=== PATIENT | female | born 1980 | race Caucasian/White ===

== ENCOUNTER 2024-01-27 10:55 | Outpatient (AMB) | payer BC, SELFPAY ==
--- NOTE | 2024-01-27 11:09 | MHC.PC.OV ---
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 Transferring care from Donna Bass ([facility]) . Medical records have not been requested and have not received. Auto Body Repair Estimator Required: No Aircraft Armament Mechanic: Not Required per policy Accompanied by: Self / Same As Patient Allergies No Known Allergies Allergy (Verified 01/27/24 11:39) Medication List - Last Reconciled 01/27/24 by LIZA Jung No Known Home Meds Tobacco use date assessed: 01/27/24 Dental Screening Dental Screen Date: 01/27/24 Did you have a dental visit in the last 12 months?: Yes Did you have a dental problem in the last 6 months where you did not have access to dental care?: No Was dental information given to patient?: Patient has dentist HPI HPI Comments History of Present Illness Details 41 y/o F with seasonal allergies, elevated blood pressure without the diagnosis of hypertension, episodic anxiety Health Maintenance: PAP Tdap Specialists: [facility], limited medical records, Went to ED 05/2023, thinks was anxiety as workup was negative, other than her BP being high. This was 05/29/23, patient summary reviewed today during visit along w/ 30 day holter monitor results that was completed 07/28/23, showed overall normal with rare PVC and PAC. Since she has had HTN at the dentist. In regards to the anxiety, had life circumstances Winter that have improved, however cont to have sx. Has tension headaches, intermittent. Denies swelling in lower ext, chest pain, visual changes. Did have HTN in period without need for treatment. Itching ear, better w/ allergy medication. Exam: Awake alert no acute distress PERRLA Thyroid nonpalpable Mildly tachycardic, regular rhythm Lung sounds clear to auscultation bilat No edema bilateral lower extremities Nonfocal neuro exam Mildly anxious, cooperative, pleasant, appropriate Plan Check labs today & return to office in about 2 weeks to follow up on elevated blood pressure without a diagnosis of hypertension. Discuss referral to counseling however she does not wish to do this at this time. If labs are nonrevealing for cause could start her on a medication that would both help her BP as well as her anxiety. This note is constructed using voice recognition software. While every effort has been made to ensure accuracy in strategic communications manager, still errors may have been included Sometimes, these errors may affect the content or meaning of the given sentence . Total time spent caring for the patient today was 30 minutes. This includes time spent before the visit reviewing the chart, time spent during the visit, and time spent after the visit on documentation [facility] Surgical History (Updated 01/27/24 @ 11:20 by MONIKA Cotton) History of 2 sections Family History (Updated 01/27/24 @ 11:26 by MONIKA Cotton) Mother High blood pressure Maternal Grandmother Diabetes Paternal Grandmother Cancer Social History (Updated 01/27/24 @ 11:21 by MONIKA Cotton) Housing: House Alcohol intake: current Alcohol intake frequency: a few times a month Alcohol type: wine Patient Tobacco Use Status: Never used Tobacco e-Cigarette/Vaping Use: Never Used Second Hand Smoke Exposure: No service: No 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 1. Little interest or pleasure in doing things: not at all 2. Feeling down, depressed, or hopeless: not at all 3. Trouble falling or staying asleep, or sleeping too much: not at all 4. Feeling tired or having little energy: not at all 5. Poor appetite or overeating: not at all 6. Feeling bad about yourself - or that you are a failure or have let yourself or your family down: not at all 7. Trouble concentrating on things, such as reading the newspaper or watching television: not at all 8. Moving or speaking so slowly that other people could have noticed. Or the opposite - being so fidgety or restless that you have been moving around a lot more than usual: not at all 9. Thoughts that you would be better off or of hurting yourself in some way: not at all Total score: 0 Depression Screening Interpretation: Negative Depression Screening Done: Yes 26338 - PHQ-9 Billing: Yes Source: Developed by Drs. Felix Henao, Jacqueline Ludwig, Brendon Mcbride and colleagues, with an educational chela from [employer]. Thrive Questionnaire Date Thrive assessed: 01/27/24 I am a: Patient What is your living situation today?: I have a steady place to live Within the past 12 months, did the food you bought not last and you didn't have the money to get more?: Never true Within the past 12 months, did you worry whether your food would run out before you got money to buy more?: Never true Do you have trouble paying for medicines?: No Do you have trouble getting transportation to medical appointments?: No Do you have trouble paying your heating and electricity bill?: No Do you have trouble taking care of your child, family member or friend?: No Do you have trouble with day-to-day activities such as bathing, preparing meals, shopping, managing finances, etc.?: No Are you currently unemployed and looking for a job?: No Are you interested in more education?: No Currently or been in a relationship where the following occur: No concerns reported THRIVE Score: 0 AUDIT C Alcohol Use Questionnaire (AUDIT-C) 1. How often do you have a drink containing alcohol?: 2-4 times a month 2. How many drinks containing alcohol do you have on a typical day when you are drinking?: 1 or 2 3. How often do you have six or more drinks on one occasion?: Never Total Score: 2 Score Reviewed/Action Taken: Yes PATITO-7 AMB Questionnaire PATITO-7 Date PATITO - 7 assessed: 01/27/24 Feeling nervous, anxious, or on edge: 0 = Not at all Not being able to stop or control worryin = Not at all Worrying too much about different things: 0 = Not at all Trouble relaxin = Not at all Being so restless that it is hard to sit still: 0 = Not at all Becoming easily annoyed or irritable: 0 = Not at all Feeling afraid as if something awful might happen: 0 = Not at all Total PATITO-7 score (0-4 normal; 5-9 mild; 10-14 moderate; 15-21 severe): 0 Source: Developed by Drs. Felix Henao, Jacqueline Ludwig, Brendon Mcbride and colleagues, with an educational chela from [employer]. PATITO-7 Assessment Billing PATITO-7 Assessment Tool: PATITO-7 Assessment 37363 Physical exam (Primary Care) Vital Signs: Last Vital Signs Pulse 95 01/27/24 11:13 BP 150/88 H 01/27/24 11:13 Pulse Ox 97 01/27/24 11:13 Oxygen Delivery Method Room Air 01/27/24 11:13 BMI result Body Mass Index 30.0 BMI Assessment/Plan discussion: High BMI High, discussed plan: lifestyle Tobacco/Smoking Status: Tobacco use Status Tobacco use date assessed 01/27/24 01/27/24 11:23 Patient Tobacco Use Status Never used Tobacco 01/27/24 11:23 e-Cigarette/Vaping Use Never Used 01/27/24 11:23 PHQ-9: PHQ-9 Score PHQ-9: Total score 0 01/27/24 11:23 Depression Screening Interpretation: Negative Thrive Assessment: Date of Thrive Assessment Date Thrive assessed 01/27/24 01/27/24 11:23 Currently or been in a relationship where the following occur: No concerns reported Assessment and Plan Assessment & Plan (1) Elevated blood pressure reading in office without diagnosis of hypertension: Code(s): R03.0 - Elevated blood-pressure reading, without diagnosis of hypertension (2) Anxiety: Code(s): F41.9 - Anxiety disorder, unspecified (3) Laboratory exam ordered as part of routine general medical examination: Code(s): Z00.00 - Encounter for general adult medical examination without abnormal findings Orders: Orders Microalbumin, Random (w Creat) Today Z00.00 - Encounter for general adult medical examination without abnormal findings Vitamin B12 and Folate Today Z00.00 - Encounter for general adult medical examination without abnormal findings TSH reflex Free T4 Today Z00.00 - Encounter for general adult medical examination without abnormal findings Comprehensive Met. Panel Today Z00.00 - Encounter for general adult medical examination without abnormal findings Hemoglobin A1c Today Z00.00 - Encounter for general adult medical examination without abnormal findings Complete Blood Count no Diff Today Z00.00 - Encounter for general adult medical examination without abnormal findings IRON PROFILE Today Z00.00 - Encounter for general adult medical examination without abnormal findings Patient Instructions: Walk-In Care (Urgent Care): We Make it Easy Walk-in for urgent medical issues such as: ? Seasonal Allergies ? Insect Bites ? Cough ? Diarrhea ? Acute Asthma Attacks ? Back, Knee or Joint Pain ? Ear Infection ? Fever without a Rash ? Headaches ? Nausea ? [place] Eye, Rash or Skin Irritation ? Sore Throat ? Sports Physicals ? Vomiting Most insurances are accepted. Patients do not need to be part of the [facility] to seek care at the walk-in clinic. Locations [address] , [place] [address] ? [phone] [facility] in [place] provides services to ages 18 and over. Open Thursday-Thursday: 8 a.m. to 5 p.m. and Thursday: 9 a.m. to 3 p.m.* *Hours may vary due to staffing availability. To confirm Walk-In Care hours in [place], please call [phone]. [address] [place] [id number] ? [phone] [facility] in [place] provides services to ages 12 and over. Open Thursday-Thursday: 8 a.m. to 5 p.m. Hours may vary due to staffing availability. To confirm Walk-In Care hours in [place], please call [phone]. LABORATORY SERVICES: [facility] Lab ? Primary Location [address] [place] [address] Thursday through Thursday 6:00 AM ? 5:00 PM Thursday 7:00 AM ? 11:00 AM* [phone] The [facility] Lab is centrally located near the front entrance of the [facility] for easy outpatient access. Convenient parking is provided for outpatients. *Hours may vary due to staffing availability. To confirm Laboratory hours for any location, please call [phone]. Offsite Location For your convenience, we offer offsite laboratory draw stations at the following locations: [address] [place] [address] ? [address], [address] Thursday through Thursday 7:30 AM ? 1:00 PM* [phone] *Hours may vary due to staffing availability. To confirm Laboratory hours for any location, please call [phone]. [place] [address]eses, [place] Thursday through Thursday 6:00 AM ? 3:30 PM* Thursday 6:30 AM ? 3 PM* [phone] *Hours may vary due to staffing availability. To confirm Laboratory hours for any location, please call [phone]. [address] [facility] Thursday through Thursday 7:30 AM ? 4:00 PM* [phone] *Hours may vary due to staffing availability. To confirm Laboratory hours for any location, please call [phone]. [address] [facility] Thursday through 9:00 AM ? 4:00 PM* *Hours may vary due to staffing availability. To confirm Laboratory hours for any location, please call [phone]. Appointments are not necessary. Walk-ins are welcome. Like all the departments throughout the [facility], our Lab undergoes frequent reviews to ensure the quality and accuracy of test results, and our staff takes special pride in its status as a nationally accredited facility. Patient Portal: ONE PATIENT. ONE RECORD. BETTER CARE. [facility] has a fully integrated, cutting-edge mobile electronic health information system that has revolutionized the way we care for our patients and manage our organization. This system improves communication and coordination enabling us to provide safe, higher-quality care, and an overall positive experience for staff and patients. Our first priority, as always, is to deliver the highest quality care possible. The system is running in the background supporting that priority. This portal is for all [facility] services and practices. If you are experiencing any technical difficulties with enrolling or logging into the Patient Portal please complete the [facility] Patient Portal Technical Support Form. [facility] now offers a new secure on-line interactive tool for patients to review their health information ? ?Patient Portal. This interactive web portal will enable patients and their families to take an active role in their care by providing easy, secure access to their health information via the internet. The Patient Portal provides patients with instant access to their health information, including laboratory results, medications, allergies, demographic information, visit history, and more. In addition to managing their own care, parents and health care proxies with authorized consent will appreciate the ability to access the records of those individuals for whom they provide care. Please note: if you wish to gain access (Proxy) to another patient?s portal, you will be required to come to the Medical Records Department in person at [facility]. Both the patient giving proxy access and the proxy will need to provide photo identification and complete the appropriate authorization. The Patient Portal also allows track their appointments online. The [facility] Patient Portal also saves patients time by allowing them to submit updates to their demographic and contact information prior to their visits. Portal email notifications will also alert patients to any new activity on their portal, such as test results and new appointments. In order to initially enroll in the [facility] Patient Portal, you will need to enter some required information including the following: your [facility] Medical Record number your personal home email address name date of Please note: In order to enroll in the [facility] Patient Portal, we need to have your email address on file in your electronic medical record. ?The email address needs to be specific for one person (yourself) in order for your Portal enrollment to be successful. ?You can update your email address in person with our Registration staff when you are registering for a hospital visit. ?Otherwise, you will need to come to the Health Information Management (Medical Records) Department at [facility]. ?We are open from Thursday ? Thursday from 7:30 a.m. ? 4:30 p.m. ?You will be required to present a photo id. Once you have successfully enrolled in the Patient Portal, you will receive a one-time user id and password for the Portal, sent to your email address. ?This will allow you to log into the Patient Portal within 99 hrs and reset your own logon id and password, and define personal security questions. ?Once your permanent login and password have been set, you can log into the [facility] Patient Portal at any time via the blue button above or from the Portal Logon button on any page of the [facility] website. [facility] encourage all of our patients to enroll in Patient Portal as it presents a valuable opportunity for patients and their families to actively participate in their care and stay healthy Welcome to [facility]. ?We look forward to working with you. Coding Level of Care Code New Pt Level 3 (37555) Diagnoses Elevated blood pressure reading in office without diagnosis of hypertension R03.0 Anxiety F41.9 Laboratory exam ordered as part of routine general medical examination Z00.00 Additional Codes PATITO-7 Assessment Billing - PATITO-7 Assessment Tool: PATITO-7 Assessment 14572 ([id number])
[2024-01-27 11:13] VITALS: BP 150/88; PULSE 95; O2SAT 97
[2024-01-27 11:48] VITALS: BP 130/88
== END 2024-01-27 12:08 | disposition home or self-care (01) ==
PROVIDERS: Visit Provider Nurse Practitioner Family
DX: R03.0 Elevated blood-pressure reading, without diagnosis of hypertension (principal); F41.9 Anxiety disorder, unspecified
CPT/HCPCS: 99203

== ENCOUNTER 2024-01-27 11:57 | Outpatient (REF) | payer BC, SELFPAY ==
[2024-01-27 14:51] LABS: Hematocrit 41.6 % (37.0-47.0); Hemoglobin 14.2 g/dl (12.0-16.0); Mean Corpuscular HGB Conc 34.1 g/dl (31.0-35.0); Mean Corpuscular Hemoglobin 30.3 pg (27.0-33.0); Mean Corpuscular Volume 88.7 fL (80.0-98.0); Mean Platelet Volume 9.9 fL (9.4-12.3); Platelet Count 320 X10*3/uL (160-400); Red Blood Count 4.69 X10*6/uL (4.20-5.50); Red Cell Distribution Width 13.7 % (11.0-16.0)
[2024-01-27 14:58] LABS: Estimated Average Glucose 105 mg/dL; Hemoglobin A1c % 5.3 % (<6.0)
[2024-01-27 15:09] LABS: Alanine Aminotransferase 117 U/L (0-31); Albumin Level 4.2 g/dL (3.5-5.0); Alkaline Phosphatase 61 U/L (39-117); Anion Gap 11 (12-20); Aspartate Amino Transferase 96 U/L (5-31); Bilirubin Total 0.4 mg/dL (0.0-1.0); Blood Urea Nitrogen 9 mg/dL (9-16); Calcium 9.9 mg/dL (8.4-10.2); Carbon Dioxide 25 mmol/L (22-29); Chloride 106 mmol/L (96-108); Estimated Glomerular Filt Rate > 60; Glucose Random 85 mg/dL (60-115); Iron 58 mcg/dL (30-160); Percent Iron Saturation 17 % (15-50); Sodium 138 mmol/L (135-145); Total Iron Binding Capacity 338 mcg/dL (228-428); Total Protein 7.5 g/dL (6.5-8.0); Unsaturated Iron Binding 280 ug/dL
[2024-01-27 15:29] LABS: TSH reflex Free T4 1.98 uIU/mL (0.32-4.0)
[2024-01-27 15:34] LABS: Folate 11.4 ng/mL (> or = 4.0); Vitamin B12 393 pg/mL (200-900)
[2024-01-27 15:58] LABS: Creatinine Urine 20.49 mg/dL; Microalbumin Urine < 5.0 mg/L
== END 2024-01-27 11:58 | disposition home or self-care (01) ==
LOC: HO.WFDLDS 11:57
PROVIDERS: Visit Provider Nurse Practitioner Family
DX: Z00.00 Encounter for general adult medical examination without abnormal findings (principal); Z13.1 Encounter for screening for diabetes mellitus
CPT/HCPCS: 36415; 80053; 82043; 82570; 82607; 82746; 83036; 83540; 84443; 85027

== ENCOUNTER 2024-02-19 11:50 | Outpatient (AMB) | payer BC, SELFPAY ==
--- NOTE | 2024-02-19 11:55 | MHC.PC.OV ---
Vital Signs 02/19/24 11:57 02/19/24 12:15 Height 5 ft 3 in Weight 170 lb 4 oz BMI 30.2 BP 150/82 H 132/84 Blood Pressure Location Lt brachial Rt brachial Position Sitting Respiration 16 Pulse 107 H 88 Pulse Source Pulse Oximeter Auscultation Pulse Oximetry (%) 98 Oxygen Delivery Method Room Air Intake Visit Reasons: 2 weeks 30 min fu HTN labs and anxiety Intake Note: follow up on labs, anxiety and hypertension Allergies No Known Allergies Allergy (Verified 02/19/24 11:57) Medication List - [facility] Known Home Meds Tobacco use date assessed: 01/27/24 Dental Screening Dental Screen Date: 01/27/24 HPI HPI Comments History of Present Illness Details 41 y/o F with seasonal allergies, elevated blood pressure without the diagnosis of hypertension, episodic anxiety, fatty liver Here today for a 2 week course interim follow up. The following was reviewed with her: 01/27/24 labs WNL except elevated LFTs Since last visit the sx of palps has happened twice. Continues to have bouts of anxiety in which she feels these palpitations. Reports that even the smallest day-to-day activities can bring on the anxiety symptoms. Sleeping good overall. Does not need counselor, feels like stressors are more regular day to day. In regard to the elevated blood pressure and elevated pulse, she denies any chest pain, shortness of breath, swelling in her legs, change of vision headaches or syncope. She does wonder if any other testing needs to be done to see if her heart is okay. Exam: Awake alert no acute distress PERRLA Thyroid nonpalpable Mildly tachycardic, regular rhythm Lung sounds clear to auscultation bilat No edema bilateral lower extremities Nonfocal neuro exam Mildly anxious, cooperative, pleasant, appropriate Plan Start propranolol ER 60 mg p.o. at bedtime, take 1 hour before bed. This will be used to help lower your blood pressure and her pulse as well as to help control anxiety. Start buspirone 10 mg 1 tab p.o. daily in the morning to help control the anxiety. Educated on side effects of medications and reasons to stop. I would like to see you back in 6 weeks to follow up, sooner as needed. In regards to additional imaging for your heart, could pursue an echocardiogram in the future, however exam is reassuring today and I do not feel this needs to be done at the current time. This note is constructed using voice recognition software. While every effort has been made to ensure accuracy in sales estimator, still errors may have been included Sometimes, these errors may affect the content or meaning of the given sentence . 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 1. Little interest or pleasure in doing things: not at all 2. Feeling down, depressed, or hopeless: not at all 3. Trouble falling or staying asleep, or sleeping too much: not at all 4. Feeling tired or having little energy: not at all 5. Poor appetite or overeating: not at all 6. Feeling bad about yourself - or that you are a failure or have let yourself or your family down: not at all 7. Trouble concentrating on things, such as reading the newspaper or watching television: not at all 8. Moving or speaking so slowly that other people could have noticed. Or the opposite - being so fidgety or restless that you have been moving around a lot more than usual: not at all 9. Thoughts that you would be better off or of hurting yourself in some way: not at all Total score: 0 40549 - PHQ-9 Billing: Yes Source: Developed by Drs. Felix Henao, Jacqueline Ludwig, Brendon Mcbride and colleagues, with an educational chela from [employer]. Thrive Questionnaire Date Thrive assessed: 01/27/24 AUDIT C Alcohol Use Questionnaire (AUDIT-C) 2. How many drinks containing alcohol do you have on a typical day when you are drinking?: 1 or 2 3. How often do you have six or more drinks on one occasion?: Less than monthly Total Score: 1 PATITO-7 AMB Questionnaire PATITO-7 Date PATITO - 7 assessed: 02/19/24 Feeling nervous, anxious, or on edge: 1 = Several days Not being able to stop or control worryin = Not at all Worrying too much about different things: 0 = Not at all Trouble relaxin = Not at all Being so restless that it is hard to sit still: 0 = Not at all Becoming easily annoyed or irritable: 1 = Several days Feeling afraid as if something awful might happen: 0 = Not at all Total PATITO-7 score (0-4 normal; 5-9 mild; 10-14 moderate; 15-21 severe): 2 Source: Developed by Drs. Felix Henao, Jacqueline Ludwig, Brendon Mcbride and colleagues, with an educational chela from [employer]. PATITO-7 Assessment Billing PATITO-7 Assessment Tool: PATITO-7 Assessment 15168 Physical exam (Primary Care) Vital Signs: Last Vital Signs Pulse 107 H 02/19/24 11:57 Resp 16 02/19/24 11:57 BP 150/82 H 02/19/24 11:57 Pulse Ox 98 02/19/24 11:57 Oxygen Delivery Method Room Air 02/19/24 11:57 BMI result Body Mass Index 30.2 Tobacco/Smoking Status: Tobacco use Status Tobacco use date assessed 01/27/24 02/19/24 12:01 Patient Tobacco Use Status Never used Tobacco 02/19/24 12:01 e-Cigarette/Vaping Use Never Used 02/19/24 12:01 PHQ-9: PHQ-9 Score PHQ-9: Total score 0 02/19/24 12:03 Thrive Assessment: Date of Thrive Assessment Date Thrive assessed 01/27/24 02/19/24 12:01 Assessment and Plan Assessment & Plan (1) Anxiety: Code(s): F41.9 - Anxiety disorder, unspecified (2) Elevated blood pressure reading in office without diagnosis of hypertension: Code(s): R03.0 - Elevated blood-pressure reading, without diagnosis of hypertension (3) Fatty liver: Code(s): K76.0 - Fatty (change of) liver, not elsewhere classified Medications: New propranolol ER 60 mg PO BEDTIME 30 caps 1RF buspirone 10 mg PO ONCE 30 tabs 1RF Coding Level of Care Code Est Pt Level 3 (45102) Complex EM visit Add On G2211 Diagnoses Anxiety F41.9 Elevated blood pressure reading in office without diagnosis of hypertension R03.0 Fatty liver K76.0 Additional Codes PATITO-7 Assessment Billing - PATITO-7 Assessment Tool: PATITO-7 Assessment 32623 ([id number])
[2024-02-19 11:57] VITALS: BP 150/82; PULSE 107; RESP 16; O2SAT 98; BMI 30.2
[2024-02-19 12:15] VITALS: BP 132/84; PULSE 88
== END 2024-02-19 12:21 | disposition home or self-care (01) ==
PROVIDERS: Visit Provider Nurse Practitioner Family
DX: F41.9 Anxiety disorder, unspecified (principal); R03.0 Elevated blood-pressure reading, without diagnosis of hypertension; K76.0 Fatty (change of) liver, not elsewhere classified

== ENCOUNTER → 2024-02-19 11:50 | Outpatient (BNVA) | payer BC, SELFPAY | PROVIDERS: Visit Provider Nurse Practitioner Family | DX: F41.9 Anxiety disorder, unspecified (principal); R03.0 Elevated blood-pressure reading, without diagnosis of hypertension; K76.0 Fatty (change of) liver, not elsewhere classified | CPT/HCPCS: 96127 ==

== ENCOUNTER 2024-03-31 09:09 | Outpatient (AMB) | payer BC, SELFPAY ==
--- NOTE | 2024-03-30 17:48 | A.OFFPC_ITS ---
Vital Signs 03/31/24 09:14 Height 5 ft 3 in Weight 171 lb 8 oz BMI 30.4 BP 124/70 Blood Pressure Location Lt brachial Position Sitting Respiration 13 Pulse 73 Pulse Source Pulse Oximeter Pulse Oximetry (%) 99 Oxygen Delivery Method Room Air Intake Visit Reasons: 6 weeks 30 min HTN/PATITO recheck Intake Note: follow up on hypertension Allergies No Known Allergies Allergy (Verified 03/31/24 09:25) Medication List - Last Reconciled 03/31/24 [facility] buspirone 10 mg PO ONCE propranolol ER 60 mg PO BEDTIME Tobacco use date assessed: 01/27/24 Dental Screening Dental Screen Date: 01/27/24 HPI HPI Comments History of Present Illness Details 43 y/o F with seasonal allergies, elevat ed blood pressure without the diagnosis of hypertension, episodic anxiety, fatty liver Health Maintenance: Tdap 2019 Flu 03/31/24 Mammo Here today for a follow up of her anxiety, palpitations and elevated blood pressure. At the last office visit she was started on propranolol ER 60 mg and advised to take at night. Since starting this she reports that she feels very well. She is no longer having any palpitations or elevation in her blood pressures. She is sleeping quite well. Denies any side effects. Reviewed indications for echocardiogram. She would like to proceed at this time. She was also prescribed buspirone 10 mg. She is taking this every morning. Reports that her emotions are stable. She is not having any periods of anxiety. Continues to deny the need for counseling Due for flu shot. Exam: Awake alert no acute distress PERRLA Thyroid nonpalpable Regular rate and Lung sounds clear to auscultation bilat No edema bilateral lower extremities Nonfocal neuro exam Cooperative, pleasant, appropriate Plan Cont propranolol ER 60 mg p.o. at bedtime, take 1 hour before bed. This will be used to help lower your blood pressure and her pulse as well as to help control anxiety. cont buspirone 10 mg 1 tab p.o. daily in the morning to help control the anxiety. Refill sent on both of these medications Echocardiogram ordered. Advised patient to send me a portal message once she has a date for this so that I may arrange a telehealth visit to follow up on the results. In regards to her next routine appointment I would like to see her back in June for complete physical exam, sooner as needed. This note is constructed using voice recognition software. While every effort has been made to ensure accuracy in operator maintainer, still errors may have been included Sometimes, these errors may affect the content or meaning of the given sentence . Total time spent caring for the patient today was 30 minutes. This includes time spent before the visit reviewing the chart, time spent during the visit, and time spent after the visit on documentation [facility] Surgical History (Updated 01/27/24 @ 11:20 by MONIKA Cotton) History of 2 sections Family History (Updated 01/27/24 @ 11:26 by MONIKA Cotton) Mother High blood pressure Maternal Grandmother Diabetes Paternal Grandmother Cancer Social History (Updated 01/27/24 @ 11:21 by MONIKA Cotton) Housing: House Alcohol intake: current Alcohol intake frequency: a few times a month Alcohol type: wine Patient Tobacco Use Status: Never used Tobacco e-Cigarette/Vaping Use: Never Used Second Hand Smoke Exposure: No service: No 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 02934 - PHQ-9 Billing: Patient declined-do not bill Source: Developed by Drs. Felix Henao, Jacqueline Ludwig, Brendon Mcbride and colleagues, with an educational chela from [employer]. Thrive Questionnaire Date Thrive assessed: 03/31/24 I am a: Patient What is your living situation today?: I have a steady place to live Within the past 12 months, did the food you bought not last and you didn't have the money to get more?: Never true Within the past 12 months, did you worry whether your food would run out before you got money to buy more?: Never true Do you have trouble paying for medicines?: No Do you have trouble getting transportation to medical appointments?: No Do you have trouble paying your heating and electricity bill?: No Do you have trouble taking care of your child, family member or friend?: No Do you have trouble with day-to-day activities such as bathing, preparing meals, shopping, managing finances, etc.?: No Are you currently unemployed and looking for a job?: No Are you interested in more education?: No Please select the resources that you would like help with: None Currently or been in a relationship where the following occur: No concerns reported THRIVE Score: 0 AUDIT C Alcohol Use Questionnaire (AUDIT-C) 1. How often do you have a drink containing alcohol?: 2-4 times a month Total Score: 2 PATITO-7 AMB Questionnaire PATITO-7 Date PATITO - 7 assessed: 03/31/24 Feeling nervous, anxious, or on edge: 0 = Not at all Not being able to stop or control worryin = Not at all Worrying too much about different things: 0 = Not at all Trouble relaxin = Not at all Being so restless that it is hard to sit still: 0 = Not at all Becoming easily annoyed or irritable: 0 = Not at all Feeling afraid as if something awful might happen: 0 = Not at all Total PATITO-7 score (0-4 normal; 5-9 mild; 10-14 moderate; 15-21 severe): 0 Source: Developed by Drs. Felix Henao, Jacqueline Ludwig, Brendon Mcbride and colleagues, with an educational chela from [employer]. PATITO-7 Assessment Billing PATITO-7 Assessment Tool: PATITO-7 Assessment 29749 Physical exam (Primary Care) Vital Signs: Last Vital Signs Pulse 73 03/31/24 09:14 Resp 13 03/31/24 09:14 BP 124/70 03/31/24 09:14 Pulse Ox 99 03/31/24 09:14 Oxygen Delivery Method Room Air 03/31/24 09:14 BMI result Body Mass Index 30.4 Tobacco/Smoking Status: Tobacco use Status Tobacco use date assessed 01/27/24 03/30/24 17:49 Patient Tobacco Use Status Never used Tobacco 03/30/24 17:49 e-Cigarette/Vaping Use Never Used 03/30/24 17:49 Thrive Assessment: Date of Thrive Assessment Date Thrive assessed 03/31/24 03/31/24 09:13 Currently or been in a relationship where the following occur: No concerns reported Office Procedures Flu Questionnaire Does the patient have a severe egg allergy?: No Does the patient have severe life threatening allergies?: No Does the patient have a fever or illness today?: No Has the patient ever had Guillain-[place] Syndrome?: No Has the patient ever had any past reaction to a flu shot?: No Immunizations Fluarix Triv [id number] (PF) 45 mcg (15 mcg x 3)/0.5 mL IM syringe Performing Provider: LIZA Jung Performing Location: [facility] [facility] Administered by: Farheen Spicer RN on 03/31/24 09:23 Dose Route Admin Location Dispensed Lot Number Expiration Date [facility] Packager [employer] 0.5 mL IM Right Deltoid 0.5 mL [id number] 11/28/24 [id number] View3 VIS Given Date VIS Provided VIS Publication Date 03/31/24 Single Vaccine 21 Eligibility Eligibility Date Funding Source Not [facility] Eligible 03/31/24 Private Coding Level of Care Code Est Pt Level 4 (84036) Complex EM visit Add On G2211 Diagnoses Elevated blood pressure reading in office without diagnosis of hypertension R03.0 Anxiety F41.9 Additional Codes PATITO-7 Assessment Billing - PATITO-7 Assessment Tool: PATITO-7 Assessment 53839 ([id number]) Assessment & Plan Assessment & Plan (1) Elevated blood pressure reading in office without diagnosis of hypertension: Comment: resolved now on propranolol Code(s): R03.0 - Elevated blood-pressure reading, without diagnosis of hypertension Category: Medical Plan: . (2) Anxiety: Code(s): F41.9 - Anxiety disorder, unspecified Category: Medical Plan: . Plan . Orders: Orders Influenza [id number] Immunization Today Z23 - Encounter for immunization CA echo transthoracic complete Today R00.2 - Palpitations, R03.0 - Elevated blood-pressure reading, without diagnosis of hypertension Medications: Refilled buspirone 10 mg PO ONCE 90 tabs 2RF propranolol ER 60 mg PO BEDTIME 90 caps 2RF
[2024-03-31 09:14] VITALS: BP 124/70; PULSE 73; RESP 13; O2SAT 99; BMI 30.4
== END 2024-03-31 09:34 | disposition home or self-care (01) ==
LOC: HO.HMCFM 09:09
PROVIDERS: PCP Nurse Practitioner Family; Visit Provider Nurse Practitioner Family
DX: R03.0 Elevated blood-pressure reading, without diagnosis of hypertension (principal); F41.9 Anxiety disorder, unspecified; Z23 Encounter for immunization

== ENCOUNTER → 2024-03-31 09:09 | Outpatient (BNVA) | payer BC, SELFPAY | PROVIDERS: PCP Nurse Practitioner Family; Visit Provider Nurse Practitioner Family | DX: R03.0 Elevated blood-pressure reading, without diagnosis of hypertension (principal); F41.9 Anxiety disorder, unspecified; Z79.899 Other long term (current) drug therapy; Z23 Encounter for immunization | CPT/HCPCS: 90471; 90656; 96127 ==

== ENCOUNTER 2024-07-01 11:55 | Outpatient (AMB) | payer BC, SELFPAY ==
--- NOTE | 2024-07-01 11:59 | A.OFFPC_ITS ---
Vital Signs 07/01/24 12:04 Height 5 ft 3 in Weight 175 lb BMI 31.0 BP 134/76 Blood Pressure Location Lt brachial Position Sitting Respiration 13 Pulse 70 Pulse Source Pulse Oximeter Temp 97.1 F Temp Source Oral Pulse Oximetry (%) 97 Oxygen Delivery Method Room Air Intake Visit Reasons: CPE Intake Note: annual physical Diet Tech Required: No Allergies No Known Allergies Allergy (Verified 07/01/24 12:18) Medication List - Last Reconciled 07/01/24 by SINCERE Jung- buspirone 10 mg PO DAILY propranolol ER 60 mg PO BEDTIME Tobacco use date assessed: 07/01/24 Dental Screening Dental Screen Date: 07/01/24 Did you have a dental visit in the last 12 months?: Yes Did you have a dental problem in the last 6 months where you did not have access to dental care?: No Was dental information given to patient?: Patient has dentist HPI HPI Comments History of Present Illness Details 43 y/o F with seasonal allergies, HTN, a nxiety, fatty liver, obesity Family hx: OA in parents, lots of members w/ HTN, cancer in PGM unsure what type; Denies DM or CAD. has children alive and well Surgery: c section Health Maintenance: Tdap 2020 Flu 03/31/24 Mammo ordered baseline today, Pap last one 2021 reports WNL @ [facility], referred to [facility] for routine screening Specialists: [employer] The patient is a 44-year-old female presenting for a wellness visit. She has a history of generalized anxiety disorder, which is currently managed with buspirone and propranolol, both of which she tolerates well without the need for refills at present. She reports no symptoms of depression and her anxiety is well-controlled with a zero score on the anxiety scale. Essential hypertension is noted, though no specific symptoms such as chest pain or shortness of breath have been reported. Past labs indicated elevated liver enzymes, but the patient denies abdominal pain and reports occasional alcohol consumption, limited to one or two glasses of wine typically on Saturdays. Prior discussions regarding an echocardiogram were deferred due to cost concerns, and she reports no significant cardiovascular symptoms currently. In terms of screening, the patient is due for a mammogram and a Pap smear as part of her routine women?s health check, as she has not had these screenings for several years. Her family history includes arthritis, other cancers, and hypertension but no specific heart diseases. Health Maintenance - Discussed upcoming mammogram and Pap s mear appointments for breast and cervical cancer screenings. - Provided referral to [facility] in [place] for screenings. - Emphasized importance of regular scree nings given family history of cancer. - Reviewed the significance of elevated liver enzymes and recommended monitoring. - Reiterated benefits of using supportiv e footwear to address plantar fasciitis. - Confirmed absence of diabetes with pas t normal labs including thyroid function. Social History - Family Status: with children. Review of Systems - Substance Use: Occasionally drinks alc ohol, mainly wine on weekends. - Functional Status: Plantar fasciitis n oted, affecting ability to stand for extended periods. -Breast c/o painful recurring lump left upper outter breast that comes and goes around her menses; has had evaled by prior [employer]. No other breast changes or concerns. - Cardiovascular: Denies chest pain, mitchell rtness of breath. - Ophthalmologic: Denies vision changes or need for glasses. - Dermatologic: Reports presence of skin tags, previously evaluated. - Musculoskeletal: Reports morning foot pain consistent with plantar fasciitis. - Gastrointestinal: Denies abdominal kevin n. Exam: General: Well developed, well nourished, in no acute distress. Appears stated age. Head: Normocephalic, atraumatic. Eyes: Pupils are equal, round and reactive to light and accommodation. Conjunctivae are clear. Vision grossly normal. Ears: TMs clear AU, EACS WNL Nose: Patent, without discharge. Mouth: There are no ulcers or lesions noted. No inflammation, no post nasal drip, no plaques nor exudates. Neck: Supple, no adenopathy or thyromegaly. Lungs: Clear to auscultation bilaterally. No rales, rhonchi or wheeze noted. Good air flow in all lau. Heart: Regular rate and rhythm. No murmurs, click, rubs or gallops are noted. Abdomen: Bowel sounds present in all quadrants. The abdomen is soft, nontender, with no masses or organomegaly noted. No hernias are noted. Musculoskeletal: Joints are nontender, without swelling, redness, or effusions. Range of motion is observed to be normal. Pulses: Peripheral pulses are equal and palpable bilaterally. Extremities: No clubbing, cyanosis nor edema is noted. Neurologic: Gait and station normal. Cranial Nerves 2-12 intact. Motor strength grossly symmetrical and intact. No sensory loss. Balance normal. Skin: No rashes, ulcers, or lesions noted. Turgor is good. Skin color is good. Hair and nails are without abnormalities. Psych: Normal eye contact, affect and mood appropriate, and normal int eractions. Patient is alert and appropriate to context. Results - Prior lab results indicate previously elevated liver enzymes; pending repeat evaluation. - Past comprehensive blood count and met abolic panel were normal. - No diabetes or thyroid dysfunction det ected in past screenings. Plan - Order mammogram and Pap smear as part of routine cancer screening. - Advise repeating liver function tests to monitor enzyme levels. - Address plantar fasciitis with recomme ndations for supportive footwear. - Continue current medication regimen fo r anxiety and hypertension without changes. - Monitor cardiovascular parameters; ech ocardiogram deferment acknowledged. - Follow up in six months for PATITO, HTN F U sooner PRN Patient was informed and verbally consented to the use of an ambient scribe for clinic note documentation during this visit. Discussion Notes I discussed with the patient the importance of routine cancer screenings, particularly given her family history. I facilitated the scheduling of a mammogram and Pap smear at the [facility], ensuring ease of access to preventative care in [place]. We reviewed the current stable management of her anxiety and hypertension, without the need for medication adjustments. I advised on practical measures for plantar fasciitis, emphasizing the need for supportive footwear to alleviate symptoms. We talked about her liver enzymes, recognizing potential contributing factors from alcohol intake, and agreed on follow-up testing. The patient expressed understanding and willingness to adhere to the proposed plans, and I emphasized returning for any new or worsening symptoms. Patient Instructions - Schedule and attend upcoming mammogram and Pap smear appointments. - Wear supportive shoes at home to help with plantar fasciitis. - Follow up with repeat liver enzyme nan ting as discussed. - Continue managing anxiety and hyperten aleta with current medications. - Return for evaluation if experience an y new symptoms or changes. 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 1. Little interest or pleasure in doing things: not at all 2. Feeling down, depressed, or hopeless: not at all 3. Trouble falling or staying asleep, or sleeping too much: not at all 4. Feeling tired or having little energy: not at all 5. Poor appetite or overeating: not at all 6. Feeling bad about yourself - or that you are a failure or have let yourself or your family down: not at all 7. Trouble concentrating on things, such as reading the newspaper or watching television: not at all 8. Moving or speaking so slowly that other people could have noticed. Or the opposite - being so fidgety or restless that you have been moving around a lot more than usual: not at all 9. Thoughts that you would be better off or of hurting yourself in some way: not at all Total score: 0 Depression Screening Interpretation: Negative Depression Screening Done: Yes 27796 - PHQ-9 Billing: Yes Source: Developed by Drs. Felix Henao, Jacqueline Ludwig, Brendon Mcbride and colleagues, with an educational chela from [employer]. Thrive Questionnaire Date Thrive assessed: 07/01/24 I am a: Patient What is your living situation today?: I have a steady place to live Within the past 12 months, did the food you bought not last and you didn't have the money to get more?: Never true Within the past 12 months, did you worry whether your food would run out before you got money to buy more?: Never true Do you have trouble paying for medicines?: No Do you have trouble getting transportation to medical appointments?: No Do you have trouble paying your heating and electricity bill?: No Do you have trouble taking care of your child, family member or friend?: No Do you have trouble with day-to-day activities such as bathing, preparing meals, shopping, managing finances, etc.?: No Are you currently unemployed and looking for a job?: No Are you interested in more education?: No Please select the resources that you would like help with: None Currently or been in a relationship where the following occur: No concerns repor brian THRIVE Score: 0 AUDIT C Alcohol Use Questionnaire (AUDIT-C) 1. How often do you have a drink containing alcohol?: 2-4 times a month 2. How many drinks containing alcohol do you have on a typical day when you are drinking?: 1 or 2 3. How often do you have six or more drinks on one occasion?: Never Total Score: 2 Score Reviewed/Action Taken: Yes PATITO-7 AMB Questionnaire PATITO-7 Date PATITO - 7 assessed: 07/01/24 Feeling nervous, anxious, or on edge: 0 = Not at all Not being able to stop or control worryin = Not at all Worrying too much about different things: 0 = Not at all Trouble relaxin = Not at all Being so restless that it is hard to sit still: 0 = Not at all Becoming easily annoyed or irritable: 0 = Not at all Feeling afraid as if something awful might happen: 0 = Not at all Total PATITO-7 score (0-4 normal; 5-9 mild; 10-14 moderate; 15-21 severe): 0 Source: Developed by Drs. Felix Henao, Jacqueline Ludwig, Brendon Mcbride and colleagues, with an educational chela from [employer]. PATITO-7 Assessment Billing PATITO-7 Assessment Tool: PATITO-7 Assessment 48498 Physical exam (Primary Care) Vital Signs: Last Vital Signs Temp 97.1 F 07/01/24 12:04 Pulse 70 07/01/24 12:04 Resp 13 07/01/24 12:04 BP 134/76 07/01/24 12:04 Pulse Ox 97 07/01/24 12:04 Oxygen Delivery Method Room Air 07/01/24 12:04 BMI result Body Mass Index 31.0 BMI Assessment/Plan discussion: High BMI High, discussed plan: lifestyle Tobacco/Smoking Status: Tobacco use Status Tobacco use date assessed 07/01/24 07/01/24 12:01 Patient Tobacco Use Status Never used Tobacco 07/01/24 12:01 e-Cigarette/Vaping Use Never Used 07/01/24 12:01 PHQ-9: PHQ-9 Score PHQ-9: Total score 0 07/01/24 12:24 Depression Screening Interpretation: Negative Thrive Assessment: Date of Thrive Assessment Date Thrive assessed 07/01/24 07/01/24 12:01 Currently or been in a relationship where the following occur: No concerns re ported Results Reviewed Results Reviewed: RUN: 07/01/24 1639 PAGE 1 [facility] [address] [place] [id number] Body Welder: Oscar Johnson M.D. Specimen Inquiry Name: Tierney Muñoz Age/Sex: 44/F : 1980 Unit#: [id number] Attend Dr: Merly Abdi Re07/01/24 Status: REG REF Location: [facility] Disch: SPEC : [id number] VERONICA: 07/01/24 STATUS: COMP REQ : [id number] RECD: 07/01/[address]: Merly Abdi COMP: 07/01/24 ENTERED: 07/01/[address]: ORDERED: CMP, Ferritin, Lipid Panel Test Result Flag Reference Sodium 140 135-145 mmol/L Potassium 4.2 3.3-5.1 mmol/L CL 109 H 96-108 mmol/L CO2 25 22-29 mmol/L Gap 10 L 12-20 BUN 16 9-16 mg/dL Creat 0.70 0.5-1.4 mg/dL eGFR > 60 Chronic Kidney Disease: Estimated GFR < 60 mL/min/1.73m2 Severe Kidney Disease: Estimated GFR < 15 mL/min/1.7 3m2 Glucose, Random 85 60-115 mg/dL CA 9.6 8.4-10.2 mg/dL Ferritin 25 10-250 ng/mL Total Bili 0.3 0.0-1.0 mg/dL AST (GOT) 41 H 5-31 U/L ALT (GPT) 72 H 0-31 U/L Protein, Total 7.5 6.5-8.0 g/dL Alb 4.2 3.5-5.0 g/dL Triglyceride 245 H <150 mg/dL Desirable Triglyceride: less than 150 mg/dL Borderline High Triglyceride 150-199 mg/dL High Triglyceride: 200-499 mg/dL Very High Triglyceride: greater than or equal to 5OO mg/dL Cholesterol 178 <200 mg/dL Desirable Cholesterol: less than 200 mg/dL Borderline High Cholesterol: 200-239 mg/dL High Cholesterol: greater than 239 mg/dL LDL Calculated 76 <100 mg/dL Desirable LDL: less than 100 mg/dL Near Optimal/Above Optimal LDL: 110-129 mg/dL Borderline High LDL: 130-159 mg/dL High LDL: 160-189 mg/dL Very High LDL: greater than or equal to 190 mg/dL HDL 53 >40 mg/dL Desirable HDL: greater than 40 mg/dL Note: This HDL assay may give artificially low results in patients with liver disease. Alk Phos 56 39-117 U/L END OF REPORT LFTS IMPROVED. HEP PROF PENDING Coding Level of Care Code Est Pt Prev Care 40-64y(38329) Diagnoses Encounter for general adult medical examination without abnormal findings Z00.00 Laboratory exam ordered as part of routine general medical examination Z00.00 Fatty liver K76.0 Screening for cholesterol level Z13.220 Plantar fasciitis of left foot M72.2 Mass of upper outer quadrant of left breast N63.21 Breast mass location: upper outer quadrant Anxiety F41.9 BMI 31.0-31.9,adult Z68.31 Class 1 obesity due to excess calories with serious comorbidity and body mass index (BMI) of 31.0 to 31.9 in adult E66.811; E66.09; Z68.31 Obesity type: due to excess calories Serious obesity comorbidity presence: with serious comorbidity Primary hypertension I10 Hypertension type: primary hypertension Additional Codes PATITO-7 Assessment Billing - PATITO-7 Assessment Tool: PATITO-7 Assessment 34638 ([id number]) PHQ-9 - 89631 - PHQ-9 Billing: Yes ([id number]) Assessment & Plan Assessment & Plan (1) Encounter for general adult medical examination without abnormal findings: Code(s): Z00.00 - Encounter for general adult medical examination without abnormal findings (2) Laboratory exam ordered as part of routine general medical examination: Code(s): Z00.00 - Encounter for general adult medical examination without abnormal findings Category: Medical (3) Fatty liver: Code(s): K76.0 - Fatty (change of) liver, not elsewhere classified Category: Medical (4) Screening for cholesterol level: Code(s): Z13.220 - Encounter for screening for lipoid disorders Category: Medical (5) Plantar fasciitis of left foot: Code(s): M72.2 - Plantar fascial fibromatosis Category: Medical (6) Left breast lump: Code(s): N63.20 - Unspecified lump in the left breast, unspecified quadrant Category: Medical Qualifiers: Breast mass location: upper outer quadrant Qualified Code(s): N63.21 - Unspecified lump in the left breast, upper outer quadrant (7) Anxiety: Code(s): F41.9 - Anxiety disorder, unspecified Category: Medical (8) BMI 31.0-31.9,adult: Code(s): Z68.31 - Body mass index [BMI] 31.0-31.9, adult Category: Medical (9) Class 1 obesity with body mass index (BMI) of 31.0 to 31.9 in adult: Comment: HTN AND FATTY LIVER Code(s): E66.811 - Obesity, class 1; Z68.31 - Body mass index [BMI] 31.0-31.9, adult Category: Medical Qualifiers: Obesity type: due to excess calories Serious obesity comorbidity presence: with serious comorbidity Qualified Code(s): E66.811 - Obesity, class 1; E66.09 - Other obesity due to excess calories; Z68.31 - Body mass index [BMI] 31.0-31.9, adult (10) HTN (hypertension): Code(s): I10 - Essential (primary) hypertension Category: Medical Qualifiers: Hypertension type: primary hypertension Qualified Code(s): I10 - Essent ial (primary) hypertension Plan . Orders: Orders MM tomosynthesis screening BI Today Z12.31 - Encounter for screening mammogram for malignant neoplasm of breast Lipid Panel Today K76.0 - Fatty (change of) liver, not elsewhere classified, Z00.00 - Encounter for general adult medical examination without abnormal findings, Z13.220 - Encounter for screening for lipoid disorders Comprehensive Met. Panel Today K76.0 - Fatty (change of) liver, not elsewhere classified, Z00.00 - Encounter for general adult medical examination without abnormal findings, Z13.220 - Encounter for screening for lipoid disorders Ferritin Today K76.0 - Fatty (change of) liver, not elsewhere classified, Z00.00 - Encounter for general adult medical examination without abnormal findings, Z13.220 - Encounter for screening for lipoid disorders Hepatitis A,B,C Profile Today K76.0 - Fatty (change of) liver, not elsewhere classified, Z00.00 - Encounter for general adult medical examination without abnormal findings, Z13.220 - Encounter for screening for lipoid disorders Referrals [facility] TESTER Referral Z12.4 - Encounter for screening for malignant neoplasm of cervix Patient Instructions: Health screenings for women You should visit your health care provider from time to time, even if you are healthy. The purpose of these visits is to: Screen for medical issues Assess your risk for future medical problems Encourage a healthy lifestyle Update vaccinations and other preventive care services Help you get to know your provider in case of an illness Information Even if you feel fine, you should still see your provider for regular checkups. These visits can help you avoid problems in the future. For example, the only way to find out if you have high blood pressure is to have it checked regularly. High blood sugar and high cholesterol levels also may not have any symptoms in the early stages. A simple blood test can check for these conditions. There are specific times when you should see your provider or receive specific health screenings. The [place] Preventive Services Task Force publishes a list of recommended screenings. Below are screening guidelines for women ages 18 to 39. BLOOD PRESSURE SCREENING Your blood pressure should be checked at least once every 3 to 5 years if: Your blood pressure is in the normal range (top number less than 120 mm Hg and bottom number less than 80 mm Hg) You don't have risk factors for high blood pressure Ask your provider if you need your blood pressure checked more often if: The top number is 120 to 129 mm Hg or the bottom number is 70 to 79 mm Hg You have diabetes, heart disease, kidney problems, are overweight, or have certain other health conditions You have a first-degree relative with high blood pressure You are Black You had high blood pressure during a If the top number is 130 mm Hg or greater or the bottom number is 80 mm Hg or greater, this is considered stage 1 hypertension. Schedule an appointment with your provider to learn how you can reduce your blood pressure. Watch for blood pressure screenings in your area. Ask your provider if you can stop in to have your blood pressure checked. BREAST CANCER SCREENING Experts do not agree about the benefits of breast self-exams in finding breast cancer or saving lives. Talk to your provider about what is best for you. A screening mammogram is not recommended for most women under age 40. Your provider may discuss and recommend mammograms, MRI scans, or ultrasounds if you have an increased risk for breast cancer, such as: A mother or sister who had breast cancer at a young age (most often starting screening earlier than the age the close relative was diagnosed) You carry a high-risk genetic marker CERVICAL CANCER SCREENING Cervical cancer screening should start at age 21 years unless your provider advises otherwise. After the first test: Women ages 21 through 29 should have a Pap test every 3 years. Exoprts do not agree on whether HPV testing is recommended for this age group. Women ages 30 through 65 should be screened with either a Pap test every 3 years or the HPV test every 5 years or both tests every 5 years (called cotesting ). Women who have been treated for precancer (cervical dysplasia) should continue to have Pap tests for 20 years after treatment or until age 65, whichever is longer. If you have had your uterus and cervix removed (total hysterectomy), and you have not been diagnosed with cervical cancer or precancer (high grade cervical neoplasia), you do not need cervical cancer screening. CHOLESTEROL SCREENING Cholesterol screening should begin at: Age 45 for women with no known risk factors for coronary heart disease Age 20 for women with known risk factors for coronary heart disease Repeat cholesterol screening should take place: Every 5 years for women with normal cholesterol levels More often if changes occur in lifestyle (including weight gain and diet) More often if you have diabetes, heart disease, kidney problems, or certain other conditions DIABETES SCREENING You should be screened for diabetes starting at age 35 and then repeated every 3 years if you have no risk factors for diabetes. Screening may need to start earlier and be repeated more often if you have other risk factors for diabetes, such as: You have a first degree relative with diabetes. You are overweight or have obesity. You have high blood pressure, prediabetes, or a history of heart disease. Screening for diabetes should be done if you are planning to become and you are overweight and have other risk factors such as high blood pressure. DENTAL EXAM Go to the dentist once or twice every year for an exam and cleaning. Your dentist will evaluate if you need more frequent visits. EYE EXAM Have an eye exam every 5 to 10 years before age 40. If you have vision problems, have an eye exam every 2 years or more often if recommended by your provider. You should have an eye exam that includes an examination of your retina (back of your eye) at least every year if you have diabetes. IMMUNIZATIONS Commonly needed vaccines include: Flu shot: get one every year. COVID-19 vaccine: ask your provider what is best for you. Tetanus-diphtheria and acellular pertussis (Tdap) vaccine: have one at or after age 19 as one of your tetanus-diphtheria vaccines if you did not receive it as an adolescent. Tetanus-diphtheria: have a booster (or Tdap) every 10 years. Varicella vaccine: receive 2 doses if you never had chickenpox or the varicella vaccine. Hepatitis B vaccine: receive 2, 3, or 4 doses, depending on your exact circumstances. Measles, mumps, and rubella (MMR) vaccine: receive 1 to 2 doses if you are not already immune to MMR. Your provider can tell you if you are immune. Ask your provider about the human papillomavirus (HPV) vaccine if: You have not received the HPV vaccine in the past You have not completed the full vaccine series (you should catch up on this shot) Ask your provider if you should receive other immunizations if you have certain health problems that increase your risk for some diseases such as pneumonia. INFECTIOUS DISEASE SCREENING Women who are sexually active should be screened for chlamydia and gonorrhea up until age 25. Women 25 years and older should be screened for chlamydia and gonorrhea if at high risk. Screening for hepatitis C: All adults ages 18 to 79 should get a one-time test for hepatitis C. people should be screened at every . Screening for human immunodeficiency virus (HIV): All people ages 15 to 65 should get a one-time test for HIV. Depending on your lifestyle and medical history, you may also need to be screened for infections such as syphilis and HIV, as well as other infections. PHYSICAL EXAM All adults should visit their provider from time to time, even if they are healthy. The purpose of these visits is to: Screen for disease Assess your risk of future medical problems Encourage a healthy lifestyle Update your vaccinations and other preventive care services Maintain a relationship with a provider in case of an illness Your height, weight, and BMI should be checked at every exam. During your exam, your provider may ask you about: Depression and anxiety Diet and exercise Alcohol and tobacco use Safety issues, such as using seat belts, smoke detectors, and intimate partner violence Your medicines and risk for interactions SKIN SELF-EXAM Your provider may check your skin for signs of skin cancer, especially if you're at high risk, such as if you: Have had skin cancer before Have close relatives with skin cancer Have a weakened immune system OTHER SCREENING Talk with your provider about colon cancer screening if you have a strong family history of colon cancer or polyps, or if you have had inflammatory bowel disease or polyps yourself. Routine bone density screening of women under 40 is not recommended.
[2024-07-01 12:04] VITALS: BP 134/76; PULSE 70; RESP 13; TEMP 36.2; O2SAT 97; BMI 31.0
== END 2024-07-01 12:38 | disposition home or self-care (01) ==
PROVIDERS: PCP Nurse Practitioner Family; Visit Provider Nurse Practitioner Family
DX: Z00.00 Encounter for general adult medical examination without abnormal findings (principal); K76.0 Fatty (change of) liver, not elsewhere classified; Z13.220 Encounter for screening for lipoid disorders; M72.2 Plantar fascial fibromatosis; N63.21 Unspecified lump in the left breast, upper outer quadrant; F41.9 Anxiety disorder, unspecified; Z68.31 Body mass index [BMI] 31.0-31.9, adult; E66.811 Obesity, class 1; E66.09 Other obesity due to excess calories; I10 Essential (primary) hypertension

== ENCOUNTER 2024-07-01 12:34 | Outpatient (REF) | payer BC, SELFPAY ==
--- OUTSIDE RECORDS SUMMARY | 2024-07-01 12:53 | XMS_ITS | Data Portability ---
Author Organization [place] - [facility] , [facility] Address [address] [place] [address] Assessment Encounter Date Assessment Date Assessment LastModified by Organization Details LastModified Time 05/21/2024 05/21/2024 Her symptoms are likely caused by a virus or allergies. I will call in a prescription for Azelastine nasal spray, prednisone, tessalon perles, and polytrim for her right eye. Warm moist compresses and tylenol/ibuprofe n was suggested for comfort for her right eye as needed. I advised her that if her symptoms worsen or do not improve, to call us back or seek in person care. Diagnosis and treatment plan discussed and she voiced agreement and understanding of the plan. [email or web address] Not available 05/21/2024 09:06:58 Plan of Treatment Reminders Order Date Submit Date Provider Last Modified By Organization Details Last Modified Time Details Appointments None recorded. Lab None recorded. Referral None recorded. Procedures None recorded. Surgeries None recorded. Imaging None recorded. Medication Orders Polytrim 10,000 unit-1 mg/mL eye drops 2023 024 [facility]/Pharmacy #[id number], [address] [place], [address], 4 09:05:49 prednisone 20 mg tablet 2023 024 [facility]/Pharmacy #[id number], [address] [place], [address], 4 09:05:51 benzonatate 200 mg capsule 2023 024 [facility]/Pharmacy #[id number], [address] [place], [address], 09:05:50 azelastine 137 mcg (0.1 %) nasal spray 2023 024 [facility]/Pharmacy #[id number], [address] [facility], [place], [address], 09:05:49 Patient TargetsNo targets recorded. Patient Instructions Encounter Date Encounter Id Patient Instructions Last Modified By Organization Details Last Modified Time 05/21/2024 [id number] [email or web address]: care instructions [email or web address] Not available 05/21/2024 09:05:46 Acute Sinusitis: Care Instructions [email or web address] Not available 05/21/2024 09:05:46 Reason for Referral None Reported. Medical Equipment None Reported. Allergies No known drug allergies Medications Name Sig Start Date Stop Date Status Note LastModified by Organization Details LastModified Time benzonata te 200 mg capsule Take 1 capsule 3 times a day by oral route as needed, for cough. 2023 active Not Available Not Available Not Avai lable prednison e 20 mg tablet Take 1 tablet twice a day by oral route as directed for 5 days. 2023 active Not Available Not Available Not Avai lable propranol ol ER 60 mg capsule,2 4 hr,extend ed release TAKE 1 CAPSULE BY MOUTH AT BEDTIME active Not Available Not Available No t Available propranol ol 60 mg tablet 05/21 completed ADDED BY PATIENT: 1 capsule by mouth at bedtime Not Available Not Available Not Available buspirone 10 mg tablet active ADDED BY PATIENT: 1 tablet a day in the morning Not Available Not Available Not Available Polytrim 10,000 unit-1 mg/mL eye drops Instill 1 drop to the right eye four times daily for 7 days 2023 active First choice for non-cont act lens wearers Not Available Not Available Not Available azelastin e 137 mcg (0.1 %) nasal spray SPRAY 2 SPRAYS TWICE A DAY BY INTRANAS AL ROUTE DIRECTED . active Not Available Not Available No t Available Vitals None Recorded Social History None recorded. Functional Status None recorded. Mental Status None recorded. Family History Nothing Reported. Medical History No medical history recorded. Gynecological HistoryNo gynecological history recorded. Obstetrics History GPAL:G 0 P 0 0 0 0 Past Encounters Encounter ID Performer Location Encounter Start Date Encounter Closed Date Diagnosis/Indication Diagnosis SNOMED-CT Code Diagnosis ICD10 Code Diagnosis Note [id number] SINCERE Barillas [address] [address] 05/21/2024 08:49:00 05/21/2024 15:04:40 Acute conjunctivitis 59886352 H10.30 Acute sinusitis 48752831 J01.90 Health Concerns Section Related Observation LastModified by Organization Detai ls LastModified Time None Recorded Concern Status LastModified by Organization Details LastModified Time None Recorded Advance Directives Directive None Recorded Payers Encounter Date Sequence Insurance Name Policy Number Policy Lay Covered Member ID Lay Member ID Guarantor Name 05/21/[address] [facility] Schuyler Stiles [id number] Schuyler Stiles 05/21/2024 2 *SELF PAY* Schuyler Stiles [id number] Schuyler Stiles Notes Date Note Type Note Provider Name and Address Organization Details Recorded Time 05/21/2024 text/html Call connected, patient greeted. Patient name, , telephone number, and location verified verbally with the patient. Telemedicine limitations reviewed, answered all questions the patient had about the telehealth interaction, and verbal consent obtained to treat. Clinician attests that she is physically located in [place] at the time of visit. Chief Complaint: HPI: 43 year old female with redness/drainage to right eye along with runny nose, cough, congestion, scratchy throat, and headaches x 2-3 daysDenies fever, gi symptoms, or shortness of breathHer kids have been ill with the same symptoms including having pink eyeHas been taking Robitussin and Ibuprofen LMP - April 30, 2024 ROS reviewed and discussed SINCERE Mccray [address] [facility] [address], [place], [address], [place] [facility] 05/21/2024 09:08:45 OBGyn Episode No OBEpisode recorded.
[2024-07-01 14:58] LABS: Alanine Aminotransferase 72 U/L (0-31); Albumin Level 4.2 g/dL (3.5-5.0); Alkaline Phosphatase 56 U/L (39-117); Anion Gap 10 (12-20); Aspartate Amino Transferase 41 U/L (5-31); Bilirubin Total 0.3 mg/dL (0.0-1.0); Blood Urea Nitrogen 16 mg/dL (9-16); Calcium 9.6 mg/dL (8.4-10.2); Carbon Dioxide 25 mmol/L (22-29); Chloride 109 mmol/L (96-108); Cholesterol 178 mg/dL (<200); Estimated Glomerular Filt Rate > 60; Glucose Random 85 mg/dL (60-115); HDL Cholesterol 53 mg/dL (>40); LDL Cholesterol Calculated 76 mg/dL (<100); Potassium 4.2 mmol/L (3.3-5.1); Sodium 140 mmol/L (135-145); Total Protein 7.5 g/dL (6.5-8.0); Triglycerides 245 mg/dL (<150)
[2024-07-01 15:15] LABS: Ferritin 25 ng/mL (10-250)
[2024-07-02 04:27] LABS: HBc Num1 0.16 S/CO (0.00-0.79); HBsAGNum1 0.39 S/CO (0.00-0.99); Hepatitis A Antibody IgM 0.17 Index (0-0.79); Hepatitis B Core Antibody Nonreactive (Nonreactive); Hepatitis B Surface Antigen Negative (Negative); ~HepC Num1 0.09 S/CO (0.00-0.79); ~Hepatitis A Antibody IgM Nonreactive (Nonreactive); ~Hepatitis B Surface Antibody NONREACTIVE (Nonreactive); ~Hepatitis C Antibody Nonreactive (Nonreactive)
== END 2024-07-01 12:35 | disposition home or self-care (01) ==
LOC: HO.WFDLDS 12:34
PROVIDERS: Visit Provider Nurse Practitioner Family
DX: Z00.00 Encounter for general adult medical examination without abnormal findings (principal); Z13.220 Encounter for screening for lipoid disorders; K76.0 Fatty (change of) liver, not elsewhere classified; M72.2 Plantar fascial fibromatosis; N63.21 Unspecified lump in the left breast, upper outer quadrant; F41.9 Anxiety disorder, unspecified; E66.811 Obesity, class 1; E66.09 Other obesity due to excess calories; Z68.31 Body mass index [BMI] 31.0-31.9, adult; I10 Essential (primary) hypertension; Z79.899 Other long term (current) drug therapy
CPT/HCPCS: 36415; 80053; 80061; 82728; 86704; 86706; 86709; 86803; 87340; 96127

== ENCOUNTER 2024-07-29 14:48 | Outpatient (REF) | payer BC, SELFPAY ==
--- OUTSIDE RECORDS SUMMARY | 2024-07-29 16:57 | XMS_ITS | Data Portability ---
Author Organization [place] - [facility] , [facility] Address [address] [place] [address] Assessment Encounter Date Assessment Date Assessment LastModified [...] 10,000 unit-1 mg/mL eye drops 2023 024 [facility]/Pharmacy #0848, [address] [place], [address], 4 09:05:49 prednisone 20 mg tablet 2023 024 [facility]/Pharmacy #0837, [address] [place], [address], 4 09:05:51 benzonatate 200 mg capsule 2023 024 [facility]/Pharmacy #0843, [address] [place], [address], 09:05:50 azelastine 137 mcg (0.1 %) nasal spray 2023 024 [facility]/Pharmacy #1888, [address] [facility], [place], [address], 09:05:49 Patient TargetsNo targets recorded. Patient Instructions Encounter Date Encounter Id Patient Instructions Last Modified By Organization Details Last Modified Time 05/21/2024 [id number] pinkeye: care instructions [email or web address] Not available 05/21/2024 [...] SNOMED-CT Code Diagnosis ICD10 Code Diagnosis Note [id number] SINCERE Barillas [address] [address] 05/21/2024 08:49:00 05/21/2024 15:04:40 Acute conjunctivitis 21038569 H10.30 Acute sinusitis 18011945 J01.90 Health Concerns Section Related Observation LastModified by Organization Detai ls LastModified Time None Recorded Concern Status LastModified by Organization Details LastModified Time None Recorded Advance Directives Directive None Recorded Payers Encounter Date Sequence Insurance Name Policy Number Policy Lay Covered Member ID Lay Member ID Guarantor Name 05/21/[address] [facility] Schuyler Stiles [id number] Schuyler Stiles 05/21/2024 2 *SELF PAY* Schuyler Stiles [id number] Schuyler Stiles Notes Date Note Type Note Provider Name and Address Organization Details Recorded Time 05/21/2024 text/html Call connected, patient greeted. Patient name, , telephone number, and location verified verbally with the patient. Telemedicine limitations reviewed, answered all questions the patient had about the telehealth interaction, and verbal consent obtained to treat. Clinician attests that she is physically located in [place] at the time of visit. Chief Complaint: [...] ROS reviewed and discussed SINCERE Mccray 1 [facility] [address], [place], [address], [place] [facility] 05/21/2024 09:08:45 OBGyn Episode No OBEpisode recorded.
== END 2024-07-29 14:49 | disposition home or self-care (01) ==
LOC: HO.MAMMO 14:48
PROVIDERS: PCP Nurse Practitioner Family; Visit Provider Nurse Practitioner Family
DX: Z12.31 Encounter for screening mammogram for malignant neoplasm of breast (principal)
CPT/HCPCS: 77063; 77067

== ENCOUNTER → 2024-07-29 15:00 | Outpatient (BNV) | payer BC, SELFPAY | PROVIDERS: PCP Nurse Practitioner Family; Visit Provider Internal Medicine | DX: Z12.31 Encounter for screening mammogram for malignant neoplasm of breast (principal) | CPT/HCPCS: 77063; 77067 ==

== ENCOUNTER 2024-12-22 09:37 | Outpatient (REF) | payer BC, SELFPAY ==
[2024-12-22 11:07] LABS: Hematocrit 42.7 % (37.0-47.0); Hemoglobin 14.5 g/dl (12.0-16.0); Mean Corpuscular HGB Conc 34.0 g/dl (31.0-35.0); Mean Corpuscular Hemoglobin 31.6 pg (27.0-33.0); Mean Corpuscular Volume 93.0 fL (80.0-98.0); NRBC Abs Auto 0.000 X10*3/uL (0.0-0.012); NRBC Pct Auto 0.0 /100WBC (0.0-0.2); Platelet Count 331 X10*3/uL (160-400); Red Blood Count 4.59 X10*6/uL (4.20-5.50); White Blood Count 8.1 X10*3/uL (4.8-10.8)
[2024-12-22 11:58] LABS: Thyroid Stimulating Hormone 1.86 uIU/mL (0.32-4.0)
[2024-12-22 15:16] LABS: Bacterial Vaginosis PCR NEGATIVE (Negative); Candida Group PCR NOT DETECTED (Not Detect); Candida glab krusei PCR NOT DETECTED (Not Detect); Trichomonas vaginalis PCR NOT DETECTED (Not Detect)
[2024-12-22 15:46] LABS: CT PCR NOT DETECTED (Not Detect.); NG PCR NOT DETECTED (Not Detect.)
== END 2024-12-22 09:38 | disposition home or self-care (01) ==
LOC: HO.LAB 09:37
PROVIDERS: PCP Nurse Practitioner Family; Visit Provider Advanced Practice Midwife
DX: Z01.419 Encounter for gynecological examination (general) (routine) without abnormal findings (principal); R87.610 Atypical squamous cells of undetermined significance on cytologic smear of cervix (ASC-US); N93.9 Abnormal uterine and vaginal bleeding, unspecified; N92.1 Excessive and frequent menstruation with irregular cycle
CPT/HCPCS: 36415; 81515; 84443; 85027; 87491; 87591; 87626; 88175

== ENCOUNTER 2024-12-22 09:37 | Outpatient (AMB) | payer BC, SELFPAY ==
--- NOTE | 2024-12-22 09:48 | A.OFFVIS_ITS ---
Vital Signs 12/22/24 09:49 Height 5 ft 3 in Weight 171 lb 4 oz BMI 30.3 BP 132/80 Blood Pressure Location Rt brachial Position Sitting Intake Visit Reasons: New Patient Annual/30 min Medical Management Trainer Required: No Hydraulic Jack Adjuster: Hydraulic Jack Adjuster Present Allergies No Known Allergies Allergy (Verified 12/22/24 09:52) Medication List - Last Reconciled 12/22/24 by Lennie Stratton LPN buspirone 10 mg PO DAILY propranolol ER 60 mg PO BEDTIME Is last menstrual period known: Yes Last menstrual period: 12/08/24 Post menopausal: No Patient : No Do you need a note to return to daycare/school/sports/work: No HPI Comments Details: Patient is a premenopausal woman presenting for new patient annual examination. 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 Menses heavy since last delivery, 2019. Regular monthly menses, HMB 1-2/5-6d. Super tampon q 3.5hrs. Currently is sexually active. She denies vaginal itching or irritation. STI screening offered; she accepts. She tries to eat healthy and stays active with exercise. Denies family history of breast, ovarian or colon cancer. Last pap smear approx 4yrs, negative. Hx. of abnormal, no LEEP. Mammogram: 2024. 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) Cognitive needs: No Hearing needs: No Vision needs: No Female Reproductive History Menstrual Age of Menarche: 15 Duration of menses: 6-7 days Date of last menstrual period: 12/08/24 control method: permanent sterilization Total pregnancies: 3 Full term: 2 Number of Living Children: 2 Ab induced: 1 Date of last pap smear: 10/09/20 History of abnormal pap smear: Yes History of STI: No Date of Mammogram: 07/29/24 History of abnormal mammogram: No Review of Systems Const All systems reviewed & are unremarkable except as noted in HPI and below Reports as per HPI Eyes Reports no additional complaints ENT Reports no additional complaints Card Reports no additional complaints Resp Reports no additional complaints GI Reports as per HPI and Reports no additional complaints Reports as per HPI Musc Reports no additional complaints Skin/Breast Reports as per HPI Neuro Reports no additional complaints Psych Reports no additional complaints Endo Reports no additional complaints Tomer/Lymph Reports no additional complaints Aller/Immun Reports no additional complaints Physical Exam Vital Signs: Last Vital Signs BP 132/80 12/22/24 09:49 BMI result Body Mass Index 30.3 Const General: cooperative, healthy appearing, no acute distress, well developed and alert Orientation/consciousness: patient oriented x3 HEENT Head: Yes normal to inspection Eyes General: appearance normal, both eyes and all related structures Neck Neck: Yes normal visual inspection Thyroid: Thyroid normal Chest Chest palpation & inspection: normal inspection of the chest and other (no puckering, dimpling, peau de orange, retraction, discharge, masses) Breast/axilla inspection: normal inspection of the breasts Breast/axilla palpation: normal palpation of the breasts Resp Effort & Inspection: normal respiratory effort GI Inspection: Yes normal to inspection and Yes scar Palpation (GI): Soft to palpation Rectal Exam - Female: deferred General: Yes bladder normal to palpation External Female Exam: normal external appearance and normal appearance of the urethra Speculum Exam - Vagina: normal appearance of the vagina, normal palpation and normal vaginal discharge Speculum Exam - Cervix: normal appearance of the cervix and normal palpation Bimanual exam- vagina & uterus: normal bimanual exam, normal palpation, uterine size normal, bladder normal to palpation, normal palpation and non-tender Bimanual Exam- Adnexa, other: no masses Skin General skin exam: no rashes or lesions noted Rashes: no rashes Neuro General: patient oriented x3 Cognition (Neuro): normal cognition Extrem General: Yes normal to inspection Psych Attitude: cooperative Thought process: Normal thought process present Assessment & Plan Assessment & Plan (1) Encounter for well woman exam with routine gynecological exam: Code(s): Z01.419 - Encounter for gynecological examination (general) (routine) without abnormal findings Category: Medical Plan: Discussed: Current recommendations for pap smears per ASCCP guidelines. Breast awareness and periodic breast exams. Mammogram yearly. Maintain a healthy lifestyle including a well balanced diet and routine exercise. Patient verbalizes understanding and agrees to the plan of care. She was given opportunity to ask questions and all questions were answered to the best of my ability. 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 This note is constructed using voice recognition software. While every effort has been made to ensure accuracy, train controller errors may have been included. (2) Abnormal uterine bleeding: Code(s): N93.9 - Abnormal uterine and vaginal bleeding, unspecified Plan Discussed: Workup for AUB to include pelvic ultrasound, cervical cultures, and lab work. Follow up in person for results. We will discuss cycle control options at her follow up. The patient expressed understanding and agreement with the plan of care. All of her questions and concerns were addressed to the best of my ability. Total time I personally spent on visit and management today: ?15 minutes. Time spent included review of pertinent office notes in the electronic health record; review of laboratory and imaging results; review of personal family medical history; performing physical exam; discussing diagnosis and plan of care with the patient; documenting the encounter in the EMR. This note is constructed using voice recognition software. While every effort has been made to ensure accuracy, train controller errors may have been included. Orders: Orders US pelvic and transvaginal Today N93.9 - Abnormal uterine and vaginal bleeding, unspecified, Z01.419 - Encounter for gynecological examination (general) (routine) without abnormal findings Complete Blood Count no Diff Today N93.9 - Abnormal uterine and vaginal bleeding, unspecified Bacterial Vaginosis Panel Today N93.9 - Abnormal uterine and vaginal bleeding, unspecified Thyroid Stimulating Hormone Today N92.1 - Excessive and frequent menstruation with irregular cycle, N93.9 - Abnormal uterine and vaginal bleeding, unspecified CT NG by PCR Vag/Cerv Today N93.9 - Abnormal uterine and vaginal bleeding, unspecified Pap Smear Today Z01.419 - Encounter for gynecological examination (general) (routine) without abnormal findings Coding Level of Care Code New Pt Level 2 (11875) New Pt Prev Care 40-64y(78727) Diagnoses Encounter for well woman exam with routine gynecological exam Z01.419 Abnormal uterine bleeding N93.9
[2024-12-22 09:49] VITALS: BP 132/80; BMI 30.3
--- OUTSIDE RECORDS SUMMARY | 2024-12-22 10:16 | XMS_ITS | Encounter Summary ---
Author Organization [facility] Address [address] [place] [phone] Phone Care Team Providers Care Residential Concierge Name Role Phone Pcp, Unknown Primary Care Provider Unavailabl e Pcp, Unknown Primary Care Provider Unavailabl e Pcp, Unknown Primary Care Provider Unavailabl e Encounter Details Date Type Department Care Team (Late st Contact Info) Description 09/22/2019 Procedure Pass [facility] Procedures [address] [place] [address] Social History Tobacco Use Types Packs/Day Years Used Date Smoking Tobacco: Never Smokeless Tobacco: Never Alcohol Use Standard Drinks/Week Comments Not Currently 0 (1 standard drink = 0.6 oz pur e alcohol) Comments No Sex and Gender Information Value Date Recorded Sex Assigned at Female 04/24/2019 5:14 AM EST Legal Sex Female 3:53 PM EST Gender Identity Female 04/24/2019 5:14 AM EST Sexual Orientation Straight 08/16/2019 9: 14 AM EDT 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 In the absence of symptoms, no isolation for COVID-19 is indicated unless they are currently COVID-19 confirmed and tests are being performed as part of documentation of resolution of infection. Approved criteria for screening can be found on [employer]. 09/22/2019 09/22/2019 09/25/2019 1:23 AM E DT documented as of this encounter Care Teams Residential Concierge Relationship Specialty Start Date End Date Pcp, Unknown PCP - General 04/24/19 05/28/23 Pcp, Unknown PCP - General 05/29/23 06/22/23 Pcp, Unknown PCP - General 06/23/23 documented as of this encounter Additional Source Comments The information contained in this document represents components of the legal health record. It is not the complete legal health record.[facility]
--- OUTSIDE RECORDS SUMMARY | 2024-12-22 10:16 | XMS_ITS | Data Portability ---
Author Organization [place] - [facility] , [facility] Address [address] [place] [address] Assessment Encounter Date Assessment Date Assessment LastModified [...] None recorded. Imaging None recorded. Medication Orders amoxicillin 500 mg tablet 2024 025 [id number], [address] [place], [address], 5 10:33:26 Polytrim 10,000 unit-1 mg/mL eye drops 2023 024 API-2823 [id number], [address] [place], [address], 5 10:25:37 prednisone 20 mg tablet 2023 024 API-2823 [id number], [address] [place], [address], 5 10:25:36 benzonatate 200 mg capsule 2023 API-2823 [id number], [address] [place], [address], 5 10:25:36 azelastine 137 mcg (0.1 %) nasal spray 2023 024 API-2823 [id number], [address] [place], [address], 10:25:37 Patient TargetsNo targets recorded. Patient Instructions Encounter Date Encounter Id Patient Instructions Last Modified By Organization Details Last Modified Time 05/21/2024 [id number] [email or web address]: care instructions [email or web address] Not available 05/21/2024 09:05:46 Acute Sinusitis: Care Instructions [email or web address] Not available 05/21/2024 09:05:46 Reason for Referral None Reported. Problems Name Problem SNOMED Code Status Onset Date Resolution Date Notes Provider Name and Address Organization Details Recorded Time Essential hypertension 26196943 Active 2024 SINCERE Mcgill [address] [place] [address] [address], [address], [facility] 10:31:54 Problem Notes None recorded. Medical Equipment None Reported. Allergies No known drug allergies Medications Name Sig Start Date Stop Date Status Note LastModified by Organization Details LastModified Time benzonata te 200 mg capsule Take 1 capsule 3 times a day by oral route as needed, for cough. 2023 active [NOT TAKING] Not Available Not Available Not Available prednison e 20 mg tablet Take 1 tablet twice a day by oral route as directed for 5 days. 2023 active [NOT TAKING] Not Available Not Available Not Available propranol ol ER 60 mg capsule,2 4 hr,extend ed release TAKE 1 CAPSULE BY MOUTH AT BEDTIME active Not Available Not Available No t Available propranol ol 60 mg tablet 05/21 completed ADDED BY PATIENT: 1 capsule by mouth at bedtime Not Available Not Available Not Available amoxicill in 500 mg tablet Take 1 tablet every 8 hours by oral route for 10 days. 2024 active Not Available Not Available Not Anna hoyt buspirone 10 mg tablet active ADDED BY PATIENT: 1 tablet a day in the morning Not Available Not Available Not Available Polytrim 10,000 unit-1 mg/mL eye drops Instill 1 drop to the right eye four times daily for 7 days 2023 active [NOT TAKING] Not Available Not Available Not Available azelastin [...] SNOMED-CT Code Diagnosis ICD10 Code Diagnosis Note [id number] Danielle smith [address] [address] 05/21/2024 08:49:00 05/21/2024 15:04:40 Acute conjunctivitis [id number] H10.30 Acute sinusitis 45450689 J01.90 [id number] Eva Birch [address] [address] 09/16/2024 10:29:12 09/16/2024 10:37:39 Infection of tooth [id number] K04.7 Dental infection - Based on the need for a root canal, severe pain, cheek redness without discharge, and slight swelling on the left upper side of the face.- Prescribed amoxicilli n (antibioti c)- Advised warm salt water gargles- Recommende d use of Motrin and Tylenol for pain management - Suggested attempting to see the dentist sooner if pain persists, as it is considered an emergency if the patient continues to experience significan t pain. Health Concerns Section Related Observation LastModified by Organization Detai ls LastModified Time None Recorded Concern Status LastModified by Organization Details LastModified Time None Recorded Advance Directives Directive None Recorded Payers Insurance Date Sequence Insurance Name Policy Number Policy Lay Covered Member ID Lay Member ID Guarantor Name 09/16/2024 [facility] Schuylre Mantz [id number] Schuyler Mantz 09/16/2024 2 *SELF PAY* Schuyler Mantz MISSING_VALU E Schuyler Mantz 04/21/2024 1 *SELF PAY* Danny macdonald Mantz 09/27/2024 1 [facility] Schuyler Mantz [id number] Schuyler Mantz 09/16/2024 1 [employer] [facility] Schuyler Mantz MISSING_VALU E Schuyler Mantz 09/16/2024 [employer] [facility] Schuyler Mantz MISSING_VALU E Schuyler Mantz Notes Date Note Type Note Provider Name and Address Organization Details Recorded Time 05/21/2024 text/html ROS as noted in the HPI Call connected, patient greeted. Patient name, , telephone number, and location verified verbally with the patient. Telemedicine limitations reviewed, answered all questions the patient had about the telehealth interaction, and verbal consent obtained to treat. Clinician attests that she is physically located in [place] at the time of visit. Chief Complaint: HPI: 43 year old female with redness/drainage to right eye along with runny nose, cough, congestion, scratchy throat, and headaches x 2-3 daysDenies fever, gi symptoms, or shortness of breathHer kids have been ill with the same symptoms including having pink eyeHas been taking Robitussin and Ibuprofen LMP - April 30, 2024 ROS reviewed and discussed JEANNA Mccray[address], [place], [address], [facility] 05/21/2024 09:08:45 09/16/2024 text/html Call connected, patient greeted. Patient name, , telephone number, and location verified verbally with the patient. Telemedicine limitations reviewed, answered all questions the patient had about the telehealth interaction, and verbal consent obtained to treat. Clinician attests that the clinician is physically located in the following state at the time of visit: [place]. The patient also consents to the use of AI scribe technology. 44 year old female with no past medical history CC: Excruciating toothache from required root canal. HPI: The patient reports severe pain in the left upper molar region for the past two days. The pain has been described as excruciating and radiating upwards, affecting their ability to keep their eyes open. Initially, the patient managed the pain with ibuprofen and Tylenol, which provided temporary relief; however, since last night, these medications have failed to alleviate the symptoms. Upon examining the inside of the cheek, the patient noticed a red spot, although there has been no discharge or foul odor. The left side of the face feels slightly enlarged, though no visible swelling is noted. The patient experienced chills this morning, but the body temperature was normal upon checking. The chills abated after taking ibuprofen. The patient denies fever or unusual odors associated with the mouth. The last menstrual period was on the 24th of the previous month. The patient exclusively manages a medical issue of high blood pressure, monitored weekly, with otherwise no recent systemic infections or pertinent medical conditions noted. SINCERE Mcgill [address] [place] [address] [address], [place], [address], [facility] 09/16/2024 10:33:28 OBGyn Episode No OBEpisode recorded.
== END 2024-12-22 10:19 | disposition home or self-care (01) ==
LOC: HO.HWS 09:38
PROVIDERS: PCP Nurse Practitioner Family; Visit Provider Advanced Practice Midwife
DX: Z01.419 Encounter for gynecological examination (general) (routine) without abnormal findings (principal); N93.9 Abnormal uterine and vaginal bleeding, unspecified
CPT/HCPCS: 99212; 99386; 99459

== ENCOUNTER 2024-12-30 09:24 | Outpatient (AMB) | payer BC, SELFPAY ==
--- NOTE | 2024-12-30 09:26 | A.OFFPC_ITS ---
Vital Signs 12/30/24 09:30 Height 5 ft 3 in Weight 174 lb BMI 30.8 BP 138/78 Blood Pressure Location Rt brachial Position Sitting Respiration 13 Pulse 68 Pulse Source Pulse Oximeter Temp 97.5 F Temp Source Oral Pulse Oximetry (%) 99 Oxygen Delivery Method Room Air Intake Visit Reasons: 6 months fu HTN and PATITO Intake Note: 6 months follow up on htn and PATITO School Photographer Required: No Allergies No Known Allergies Allergy (Verified 12/30/24 09:42) Medication List - Last Reconciled 12/30/24 by Merly Abdi, KRAFT DIGESTER OPERATOR- buspirone 10 mg PO DAILY propranolol ER 60 mg PO BEDTIME Tobacco use date assessed: 12/30/24 Dental Screening Dental Screen Date: 12/30/24 Did you have a dental visit in the last 12 months?: Yes Did you have a dental problem in the last 6 months where you did not have access to dental care?: No Was dental information given to patient?: Patient has dentist HPI HPI Comments History of Present Illness Details 44 y/o F with seasonal allergies, elevat ed blood pressure without the diagnosis of hypertension, episodic anxiety, fatty liver Social: Working 3 days week/[employer] Health Maintenance: Tdap 2019 Flu 03/31/24 Mammo 07/2024 WNL Pap 11/2024 WNL Labs 12/22/24 CBC and TSH WNL Here today for routine follow up of chronic conditions. Since last office visit she started working 3 days a week at [employer]. This has helped her mood. She continues to take buspirone. Admits to forgetting on the days that she is working however she still feels like her mood is quite stable. She was also started on propranolol ER 60 mg at bedtime to help not only with her mood but also for episodes of tachycardia. She has been taking that every night as directed. She reports that she feels great. She is complaining of some pain in her right foot it is similar to the pain that she had an her left foot about 6 months ago. She describes pain in the heel and some swelling in the arch of her foot. Tries to wear supportive shoes. Denies any systemic symptoms. She has a history of fatty liver and denies any abdominal pain. She is undergoing workup for abnormal uterine bleeding by decal decorator. Exam: Awake alert no acute distress PERRLA Thyroid nonpalpable RRR Lung sounds clear to auscultation bilat No edema bilateral lower extremities Pain over heel on R w/ palpation Nonfocal neuro exam Cooperative, pleasant, appropriate Plan: Continue buspirone and propranolol. Check LFTs and lipid profile today. Exercises for plantar fasciitis provided at the office visit today. Topical Voltaren as needed. Supportive shoes. If no improvement send message via the portal to refer to Podiatry. Return to the office in 6 months for a physical and sooner as needed Total time spent caring for the patient today was 30 minutes. This includes time spent before the visit reviewing the chart, time spent during the visit, and time spent after the visit on documentation, reviewing laboratory results, diagnostic imaging, medications, performing a medically necessary evaluation, counseling on diagnoses, care coordination, ordering appropriate tests, ordering appropriate medications, review of tests performed by other providers, reporting test results with the patient, communication with other healthcare providers. 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 1. Little interest or pleasure in doing things: not at all 2. Feeling down, depressed, or hopeless: not at all 3. Trouble falling or staying asleep, or sleeping too much: not at all 4. Feeling tired or having little energy: not at all 5. Poor appetite or overeating: not at all 6. Feeling bad about yourself - or that you are a failure or have let yourself or your family down: not at all 7. Trouble concentrating on things, such as reading the newspaper or watching television: not at all 8. Moving or speaking so slowly that other people could have noticed. Or the opposite - being so fidgety or restless that you have been moving around a lot more than usual: not at all 9. Thoughts that you would be better off or of hurting yourself in some way: not at all Total score: 0 Depression Screening Interpretation: Negative Depression Screening Done: Yes 40161 - PHQ-9 Billing: Yes Source: Developed by Drs. Felix Henao, Jacuqeline Ludwig, Brendon Mcbride and colleagues, with an educational chela from [employer]. Thrive Questionnaire Date Thrive assessed: 12/30/24 I am a: Patient What is your living situation today?: I have a steady place to live Within the past 12 months, did the food you bought not last and you didn't have the money to get more?: Never true Within the past 12 months, did you worry whether your food would run out before you got money to buy more?: Never true Do you have trouble paying for medicines?: No Do you have trouble getting transportation to medical appointments?: No Do you have trouble paying your heating and electricity bill?: No Do you have trouble taking care of your child, family member or friend?: No Do you have trouble with day-to-day activities such as bathing, preparing meals, shopping, managing finances, etc.?: No Are you currently unemployed and looking for a job?: No Are you interested in more education?: No Please select the resources that you would like help with: None Currently or been in a relationship where the following occur: No concerns reported THRIVE Score: 0 AUDIT C Alcohol Use Questionnaire (AUDIT-C) 1. How often do you have a drink containing alcohol?: Monthly or less 2. How many drinks containing alcohol do you have on a typical day when you are drinking?: 1 or 2 3. How often do you have six or more drinks on one occasion?: Never Total Score: 1 Score Reviewed/Action Taken: Yes PATITO-7 AMB Questionnaire PATITO-7 Date PATITO - 7 assessed: 12/30/24 Feeling nervous, anxious, or on edge: 0 = Not at all Not being able to stop or control worryin = Not at all Worrying too much about different things: 0 = Not at all Trouble relaxin = Not at all Being so restless that it is hard to sit still: 0 = Not at all Becoming easily annoyed or irritable: 0 = Not at all Feeling afraid as if something awful might happen: 0 = Not at all Total PATITO-7 score (0-4 normal; 5-9 mild; 10-14 moderate; 15-21 severe): 0 Source: Developed by Drs. Felix Henao, Jacqueline Ludwig, Brendon Mcbride and colleagues, with an educational chela from [employer]. PATITO-7 Assessment Billing PATITO-7 Assessment Tool: PATITO-7 Assessment 94120 Physical exam (Primary Care) Vital Signs: Last Vital Signs Temp 97.5 F 12/30/24 09:30 Pulse 68 12/30/24 09:30 Resp 13 12/30/24 09:30 BP 138/78 12/30/24 09:30 Pulse Ox 99 12/30/24 09:30 Oxygen Delivery Method Room Air 12/30/24 09:30 BMI result Body Mass Index 30.8 BMI Assessment/Plan discussion: High BMI High, discussed plan: lifestyle Tobacco/Smoking Status: Tobacco use Status Tobacco use date assessed 12/30/24 12/30/24 09:31 Patient Tobacco Use Status Never used Tobacco 12/30/24 09:31 e-Cigarette/Vaping Use Never Used 12/30/24 09:31 PHQ-9: PHQ-9 Score PHQ-9: Total score 0 12/30/24 09:33 Depression Screening Interpretation: Negative Thrive Assessment: Date of Thrive Assessment Date Thrive assessed 12/30/24 12/30/24 09:31 Currently or been in a relationship where the following occur: No concerns reported Coding Level of Care Code Est Pt Level 4 (11376) Complex EM visit Add On G2211 Diagnoses Anxiety F41.9 Primary hypertension I10 Hypertension type: primary hypertension Fatty liver K76.0 Obesity (BMI 30-39.9) E66.9 Plantar fasciitis, right M72.2 Additional Codes PATITO-7 Assessment Billing - PATITO-7 Assessment Tool: PATITO-7 Assessment 42352 ([id number]) PHQ-9 - 26481 - PHQ-9 Billing: Yes ([id number]) Assessment & Plan Assessment & Plan (1) Anxiety: Code(s): F41.9 - Anxiety disorder, unspecified Category: Medical (2) HTN (hypertension): Code(s): I10 - Essential (primary) hypertension Category: Medical Qualifiers: Hypertension type: primary hypertension Qualified Code(s): I10 - Essential (primary) hypertension (3) Fatty liver: Code(s): K76.0 - Fatty (change of) liver, not elsewhere classified Category: Medical (4) Obesity (BMI 30-39.9): Code(s): E66.9 - Obesity, unspecified Category: Medical (5) Plantar fasciitis, right: Code(s): M72.2 - Plantar fascial fibromatosis Category: Medical Plan , Orders: Orders Lipid Panel Today E66.9 - Obesity, unspecified, I10 - Essential (primary) hypertension, K76.0 - Fatty (change of) liver, not elsewhere classified Liver Panel Today E66.9 - Obesity, unspecified, I10 - Essential (primary) hypertension, K76.0 - Fatty (change of) liver, not elsewhere classified Medications: New diclofenac sodium 1% (Arthritis Pain (diclofenac)) apply to single knee, ankle, foot; for foot includes sole/toes/top of foot 4 grams topical QID 100 grams 12RF
[2024-12-30 09:30] VITALS: BP 138/78; PULSE 68; RESP 13; TEMP 36.4; O2SAT 99; BMI 30.8
--- OUTSIDE RECORDS SUMMARY | 2024-12-30 09:36 | XMS_ITS | Encounter Summary ---
Author Organization [facility] Address [address] [place] [address] Phone Care Team Providers Care Pumper Gauger Name Role Phone Pcp, Unknown Primary Care Provider Unavailabl e Pcp, Unknown Primary Care Provider Unavailabl e Pcp, Unknown Primary Care Provider Unavailabl e Encounter Details Date Type Department Care Team (Late st Contact Info) Description 09/22/2019 Procedure Pass [facility] L&D Procedures [address] [place] [address] Social History Tobacco Use Types Packs/Day Years [...] documented as of this encounter Care Teams Pumper Gauger Relationship Specialty Start Date End Date Pcp, Unknown PCP - General 04/24/19 05/28/23 Pcp, Unknown PCP - General 05/29/23 06/22/23 Pcp, Unknown PCP - General 06/23/23 documented as of this encounter Additional Source Comments The information contained in this document represents components of the legal health record. It is not the complete legal health record.[facility]
== END 2024-12-30 09:58 | disposition home or self-care (01) ==
LOC: HO.HMCFM 09:24
PROVIDERS: PCP Nurse Practitioner Family; Visit Provider Nurse Practitioner Family
DX: I10 Essential (primary) hypertension (principal); F41.9 Anxiety disorder, unspecified; Z68.30 Body mass index [BMI] 30.0-30.9, adult; E66.9 Obesity, unspecified; K76.0 Fatty (change of) liver, not elsewhere classified; M72.2 Plantar fascial fibromatosis

== ENCOUNTER → 2024-12-30 09:24 | Outpatient (BNVA) | payer BC, SELFPAY | PROVIDERS: PCP Nurse Practitioner Family; Visit Provider Nurse Practitioner Family | DX: F41.9 Anxiety disorder, unspecified (principal); I10 Essential (primary) hypertension; K76.0 Fatty (change of) liver, not elsewhere classified; E66.9 Obesity, unspecified; Z68.30 Body mass index [BMI] 30.0-30.9, adult; M72.2 Plantar fascial fibromatosis; Z13.31 Encounter for screening for depression; Z13.39 Encounter for screening examination for other mental health and behavioral disorders | CPT/HCPCS: 96127 ==

== ENCOUNTER 2025-01-27 14:58 | Outpatient (REF) | payer BC, SELFPAY ==
--- NOTE | ~2025-01-27 | US_ITS ---
EXAMINATION: US PELVIS CLINICAL INFORMATION: Z01.419 - Encounter for gynecological examination, abnormal uterine bleeding, history of tubal ligation and COMPARISON: None available. TECHNIQUE: Ultrasound of the pelvis is performed using both transabdominal and transvaginal transducers along with Doppler. Transvaginal imaging is performed due to inadequate visualization transabdominally. FINDINGS: Uterus: The uterus is anteverted and measures 10 x 4 x 5 cm. The double wall endometrial thickness is 9 mm. Focal heterogeneous hypodensity is present in the left fundus of the uterus measuring 17 x 13 x 13 mm consistent with intramural leiomyoma. Adnexa: Both ovaries are visualized. There is normal color flow to the adnexa. There is no ovarian torsion. There is no pelvic ascites or fluid collection. Right ovary measures 3.7 x 2.5 x 1.9 cm. Left ovary measures 2.5 x 1.6 x 1.5 cm. US/US pelvic and transvaginal IMPRESSION: Small intramural leiomyoma is present in the left fundus measuring 17 mm long axis. Electronically signed by: Kevin Bello MD 01/27/2025 03:41 PM EDT
--- OUTSIDE RECORDS SUMMARY | 2025-01-27 14:59 | XMS_ITS | Encounter Summary ---
Author Organization [facility] Address [address] [place] [address] Phone Care Team Providers Care Shuttle Buggy Operator Name Role Phone Pcp, Unknown Primary Care Provider Unavailabl e Reason for Referral * Hospital - Outpatient - Closed Specialty Diagnoses / Procedures Referred By Ce t Referred To Contact Diagnoses Palpitations Procedures Event Monitor Looping up to 30 Days MCT (Mobile Cardiac Telemetry) Event Monitor Looping up to 30 Days Chyna Aguilar PA-C Phone: tel: fax: mailto: Referral ID Status Reason Start Date Expiration Date Visits Re quested Visits Authorized [id number] Closed 05/29/2023 05/28/2024 1 1 Encounter Details Date Type Department Care Team (Latest Contact Info) Description 07/29/2023 Ancillary Orders [facility] Emergency [address] [place] [address] Chyna Aguilar PA-C [address] [place] [address] [email or web address] Palpitations (Primary Dx) Social History Tobacco Use Types Packs/Day Years Used Date Smoking Tobacco: Never Smokeless Tobacco: Never Alcohol Use Standard Drinks/Week Comments Not Currently 0 (1 standard drink = 0.6 oz pur e alcohol) Education Answer Date Recorded Are you interested in more education? Not on tanmay e 09/26/2022 Are you concerned about learning? Not on file 09/26/2022 No 09/26/2022 No 09/26/2022 Digital Access Answer Date Recorded No 10/25/2022 No 10/25/2022 No 10/25/2022 Reliable internet access at home? Not on file 10/25/2022 Device with a working camera? Not on file Comments No Sex and Gender Information Value [...] on file documented as of this encounter Results * Event Monitor Looping up to 30 Days (07/24/2023 1:57 PM EST) Anatomical Region Laterality Modality Heart Other Narrative 07/28/2023 7:38 AM EST The predominant rhythm is all normal sinus rhythm. The minimum average and max heart rates were all within normal limits. There were rare PACs and PVCs no evidence of atrial fibrillation or flutter were seen no evidence of heart block was seen. us Chyna Aguilar PA-C [facility] Edited Result - Final documented in this encounter Visit Diagnoses Diagnosis Palpitations Palpitations- Primary documented in this encounter Care Teams Shuttle Buggy Operator Relationship Specialty Start Date End Date Pcp, Unknown PCP - General 06/23/23 documented as of this encounter Additional Source Comments The information contained in this document represents components of the legal health record. It is not the complete legal health record.[facility]
--- OUTSIDE RECORDS SUMMARY | 2025-01-27 14:59 | XMS_ITS | Encounter Summary ---
Author Organization [facility] Address [address] [place] [address] Phone Care Team Providers Care Diesel Dinkey Engineer Name Role Phone Pcp, Unknown Primary Care Provider Unavailabl e Pcp, Unknown Primary Care Provider Unavailabl e Pcp, Unknown Primary Care Provider Unavailabl e Encounter Details Date Type Department Care Team (Late st Contact Info) Description 09/22/2019 Procedure Pass [facility] L&D Procedures [address] [place] [address] Social History Tobacco Use Types Packs/Day Years [...] documented as of this encounter Care Teams Diesel Dinkey Engineer Relationship Specialty Start Date End Date Pcp, Unknown PCP - General 04/24/19 05/28/23 Pcp, Unknown PCP - General 05/29/23 06/22/23 Pcp, Unknown PCP - General 06/23/23 documented as of this encounter Additional Source Comments The information contained in this document represents components of the legal health record. It is not the complete legal health record.[facility]
--- OUTSIDE RECORDS SUMMARY | 2025-01-27 14:59 | XMS_ITS | Encounter Summary ---
Author Organization [facility] Address [address] [address] Phone Care Team Providers Care Warehousing Technician Name Role Phone Pcp, Unknown Primary Care Provider Unavailabl e Pcp, Unknown Primary Care Provider Unavailabl e Encounter Details Date Type Department Care Team ([facility] st Contact Info) Description 05/29/2023 Procedure Pass Non-Invasive Cardiology [address] [place] [address] Social History Tobacco Use Types Packs/Day Years [...] on file documented as of this encounter Functional Status * Calculated C-SSRS Risk Score (Lifetime/Recent) Answer Date of Assessment Author No Risk Indicated 05/29/2023 11:53 AM Diane Lee * Vick[place] Suicide Severity Rating Scale (Screener/Recent Self-Report) Question Answer Date of Assessment Author 1. Wish to be (Past 1 Month) No 023 11:53 AM Diane Lee 2. Non-Specific Active Suici buddy Thoughts (Past 1 Month) No 05/29/2023 11:53 AM Ta Lee 6. Suicidal Behavior (Lifetime) No 3 11:53 AM Diane Lee documented as of this encounter Plan of Treatment Not on file documented as of this encounter Visit Diagnoses Not on filedocumented in this encounter Care Teams Warehousing Technician Relationship Specialty Start Date End Date Pcp, Unknown PCP - General 05/29/23 06/22/23 Pcp, Unknown PCP - General 06/23/23 documented as of this encounter Additional Source Comments The information contained in this document represents components of the legal health record. It is not the complete legal health record.[facility]
--- OUTSIDE RECORDS SUMMARY | 2025-01-27 14:59 | XMS_ITS | Clinical Summary ---
Author Organization [employer] [facility] Address [address] [place] [phone] Phone Care Team Providers Care Beta Tester Name Role Phone Pcp, Unknown Primary Care Provider Unavailabl e Allergies No known active allergies Medications No known medications Active Problems Problem Noted Date Diagnosed Date Umbilical hernia without obstruction and without gangrene 11/12/2020 Assessment & Plan (11/12/2020 10:53 AM EDT): Small hernia Surgical referral placed to eval and manage Stress incontinence in female 03/09/2020 Assessment & Plan (11/12/2020 10:49 AM EDT): Info on kegals given Recommend Momma Strong - website given If no improvement, will restart PT when Tierney is able Assessment & Plan (03/09/2020 9:03 AM EDT): Urinary symptoms consistent with LEDY. Patient states she only has leakage at this point with certain movements. Primarily with abdominal contraction/certain exercises or movements. Discussed pelvic floor exercises/Kegel's. Suggested physical therapy referral for further instruction on exercise for strengthening. If strengthening does not allow for satisfactory results, pessary or surgical management may be considered. Advised patient following is not uncommon to have some degree of urinary incontinence and the majority of cases this will resolve with strengthening and time. Acute midline low back pain without sciatica 01/2020 Assessment & Plan (11/12/2020 10:48 AM EDT): Back stretches and exercises given Pt will call when she is able to attend PT for referral Assessment & Plan (03/09/2020 8:58 AM EDT): Low back pain seems musculoskeletal as it is only associated with exercise. Body mechanics reviewed. Morning and evening low back stretching reviewed. Plan for physical therapy for LEDY and guidance on abdominal and low back strengthening. Follow-up with PCP if despite above pain is persisting or worsening or there is any change in symptoms with radiation of pain. History of human papilloma virus 11/07/2019 Overview (11/07/2019): 2016 On pap during 2017 NIL pap (do not have records 2018 NIL, HPV neg pap OK to return to q 5 year screening. Next pap due 2023 Assessment & Plan (11/07/2019 10:55 AM EDT): 2016 On pap during 2017 NIL pap (do not have records 2018 NIL, HPV neg pap OK to return to q 5 year screening. Next pap due 2023 History of pyelonephritis during 04/24 Overview (06/28/2019): 04/15/19 Discharged with cefuroxime 500 mg BID to finish a one week course and then after that, prophylaxis with keflex 250 mg at HS daily for rest of Assessment & Plan (06/29/2019 10:54 AM EST): Has been taking Keflex as prescribed. Denies dysuria, frequency, contractions. Continue daily Keflex. Assessment & Plan (04/25/2019 9:30 AM EST): Patient with urinalysis suggestive of urinary tract infection. Leukocytosis present with urinary hesitancy and right flank pain. Recent outpatient treatment for UTI in March for which the patient took 1 week of antibiotics though she is unsure of the name. -OB consult pending. They are aware and plan to come to monitor heart sounds. -IV ceftriaxone initiated with first dose given today. Will continue every 24 hours. Will transition to oral antibiotics when appropriate. -Renal bladder ultrasound performed which showed no stones or hydronephrosis. No concerning findings. Postvoid residual just 27 cc. -Urine and blood cultures pending -We will try to find out from [facility] which oral antibiotic was trialed 1 month ago Patient likely to be able to transition to oral antibiotics after 24 to 48 hours if she remains afebrile and lab work and clinical status is improving. Resolved Problems Problem Noted Date Diagnosed Date Resolved Date Normal , unspecified trimester 09/22/2019 11/07/2019 Request for sterilization 07/27/2019 18 weeks gestation of 04/24/2019 06/28/2019 Assessment & Plan (04/24/2019 1:14 PM EST): Uncomplicated. OB involved. Encounter for supervision of multigravida of advanced maternal age in third trimester 04/22/2019 11/07/2019 Overview (07/27/2019): CNM Dating criteria LMP consistent with first trimester ultrasound Childbirth Ed? Group PN care? Offered Rh A+ GC/Chlam neg Tdap 07/27/19 Flu 04/19/19 Hgb 12.0 GTT 135 GBS pos in urine PPBC * screening Declined Transfer of care at 17 weeks. Records available and reviewed at time of intake. Labs entered into results console. Assessment & Plan (08/30/2019 10:12 AM EDT): Ehsan is doing well. Denies VB/LOF/Ctxs. + FM. We discussed COVID-19 precautions, office and hospital preparation and new visitor policy. Michelle is prepared and has been staying at home with her 4 year old. Her partner has been needing to work at the [employer] but they are being very cautious and he does good hand hygiene and showers at home. Planning for sister in law to be watching her son when they come in for delivery. She will likely be off for the 2 wks prior to delivery so can home isolate. Has pre-op visit for C/S and BTL next week with Dr Forte. Reviewed when to call. A virtual visit was used during the COVID-[address] of an in-person visit. I personally spent 15 minutes with the patient during this real-time interactive virtual clinical encounter, which was conducted using telephone-only technology, and >50% of which was devoted to counseling and coordinating care for the above issues. Consent for virtual care, including informing the patient that insurance will be billed, was discussed at the time of scheduling. Assessment & Plan (08/08/2019 10:43 AM EDT): Tierney is here doing well. Denies VB/LOF/Ctxs. + FM. Reports some BH ctxs, maybe 2/day. Reassured - reviewed PTL symptoms and when to call. Also baby is having hiccups- reassured. Reviewed CBC renovation - has info and did tour. Asking about if baby will need NICU care d/t GBS pos - I reviewed that is not standard for colonization. We discussed antibiotic prophylaxis and monitoring of baby PP Assessment & Plan (07/27/2019 10:36 AM EST): Doing well, PP BCM reviewed, she would like tubal if CS. Otherwise, unsure. She plans a tour of CBC soon. TDAP today. Assessment & Plan (07/12/2019 1:53 PM EST): Tierney is doing well today- feeling abundant movement. She has no questions today. Message sent to [facility] to schedule repeat c/section. Nml gtt/cbc reviewed and gc/ct sent. Assessment & Plan (06/29/2019 11:39 AM EST): Tierney is doing well, no concerns. In the middle of her CBC/GTT. +FM. Denies UCs, VB, LOF. Labor and warning signs reviewed. Assessment & Plan (05/30/2019 10:59 AM EST): Tierney is doing well, here with her family. Feeling abundant movement. Denies VB/LOF/ctx. Reviewed normal level II ultrasound, anatomy unremarkable. Discussed timing of GTT/CBC, orders placed. Reviewed warning signs and indications to call. Assessment & Plan (04/22/2019 8:40 AM EST): Tierney is feeling well. Transferring care for a more personal experience. Oriented to practice. Would like to receive care from midwives. Happy to hear heart rate today. Scheduled for Level 2 ultrasound. Declined other genetic testing. Group B streptococcal carria ge complicating 04/22/2019 11/07/2019 Overview (04/22/2019): GBS UTI in first trimester. Treated Will need Abx in labor Assessment & Plan (04/22/2019 8:41 AM EST): Reviewed GBS bacteruria found at other practice. Explained that this means she is a carrier of GBS bacteria and will need antibiotic treatment in labor. All questions answered. Previous delivery a ffecting 04/22/2019 11/07/2019 Overview (06/29/2019): section in first . Post dates induction. Pushed for 3 hours. was done for distress. Counseling done during first visit. Per TOLAC success calculator if first is considered failure to descend her chance of success is 46%. If first is considered for intolerance her chance of success is 58%. 06/29 Planning RCS. Consent signed Assessment & Plan (08/08/2019 10:41 AM EDT): Was thinking about TOLAC if she went into spontaneous labor. Now declines that, has decided just to go with the Repeat C.S as scheduled Assessment & Plan (07/27/2019 10:35 AM EST): Discussed consult with MD at 36 weeks, scheduled today. Patient clarifies today that she would want to try for a vaginal delivery if she has spontaneous labor prior to MARY. She is not interested in going postdates or in IOL. Counseled on inpatient care for TOLAC. Assessment & Plan (06/29/2019 11:38 AM EST): TOLAC consent signed and returned. Pt planning RCS. Will schedule surgical consult with an MD around 36 weeks. Assessment & Plan (05/30/2019 10:59 AM EST): Continuing to consider and discuss with her . Is considering TOLAC if spontaneous labor, possibly scheduling c/s for 41 wks. Will continue to discuss. Assessment & Plan (04/22/2019 8:13 AM EST): Counseled on risks and benefits Overall Benefits : A avoids major abdominal surgery, lowers a woman s risk of hemorrhage and infection, and shortens recovery. It may also help women avoid the possible future risks related to having multiple cesareans, such as hysterectomy, bowel and bladder injury, transfusion, infection, and abnormal placenta conditions (placenta previa and placenta accreta). Overall Risks : Both repeat and a TOLAC carry risks including maternal hemorrhage, infection, operative injury, blood clots, hysterectomy, and . Most maternal injury that occurs during a TOLAC happens when a repeat becomes necessary after the TOLAC fails. A successful has fewer complications than an elective repeat while a failed TOLAC has more complications than an elective repeat . Uterine Rupture Risk : The risk of uterine rupture during a TOLAC is low--between 0.7% and 0.9%--but if it occurs, it is an emergency situation. A uterine rupture can cause serious injury to a mother and her baby. ACOG maintains that a TOLAC is most safely undertaken where staff can immediately provide an emergency , but recognizes that such resources may not be universally available Per TOLAC success calculator if first is considered failure to descend her chance of success is 46%. If first is considered for intolerance her chance of success is 58%. These numbers were reviewed with Tierney Immunizations Immunization Administration Dates Next Due COVID-19 (Pre-03/23) Pfizer Vaccine, mRNA, PF 10/19/2020,09/28/2020 Influenza Quadrivalent Preservative Free IM 03/02,03/28/2020,04/19/2019 Tdap 07/27/2019 Family History Medical History Relation Comments No Known Problems Brother Arthritis Maternal Grandmother Hypertension Mother Thyroid cancer Paternal Grandmother Migraines Sister Relation Status Comments Brother Alive Father Alive no contact with father for 10 years, history unknown Maternal Grandfather Maternal Grandmother Mother Alive Paternal Grandfather Paternal Grandmother Sister Alive Social History Tobacco Use Types Packs/Day Years [...] file Not on file Not on file Last Filed Vital Signs Vital Sign Reading Time Taken Comments Blood Pressure 154/108 05/29/2023 3:50 PM EST Pulse 92 05/29/2023 3:50 PM EST Temperature 36.8 C (98.2 F) 05/29/2023 3:50 PM EST Respiratory Rate 20 05/29/2023 3:50 PM EST Oxygen Saturation 98% 05/29/2023 3:50 PM EST Inhaled Oxygen Concentration - - Weight 74.4 kg (164 lb) 05/29/2023 11:52 AM EST Height 160 cm (5' 3 ) 05/29/2023 11:52 AM EST Body Mass Index 29.05 05/29/2023 11:52 AM EST Plan of Treatment Health Maintenance Due Date Last Done Comments DEPRESSION SCREENING 1994 HEPATITIS C SCREENING 2000 PAP SMEAR 02/09/2022 02/09/2019 MAMMOGRAM 2022 COVID-19 VACCINE (3 2023-2 5 season) 2024 10/19/2020, 09/28/2020 SCREENING FOR DIABETES 05/29/2026 05/29/2023 Adult Td,Tdap Booster 07/27/2029 07/27/2019 HIV ONE-TIME SCREENING (18-6 5 YEARS) Completed 03/01/2019 SMOKING STATUS SCREENING (On ce After 26 Yrs) Completed 03/09/2020 HEPATITIS A VACCINES Aged Out No long er eligible based on patient's age to complete this topic HIB VACCINES Aged Out No longer eligi ble based on patient's age to complete this topic MENINGOCOCCAL VACCINES (ACWY) Aged Out No longer eligible based on patient's age to complete this topic MENINGOCOCCAL VACCINES (B) Aged Out N o longer eligible based on patient's age to complete this topic PNEUMOCOCCAL VACCINES (0-49 years) Aged Out No longer eligible b ased on patient's age to complete this topic Medical Devices Not on file Procedures Procedure Name Priority Date/Time Associated Diagnosis Comments PAP TEST Routine 02/09/2019 from Last 3 Months or Most Recently Relevant to Health Maintenance Results * Pap Smear (02/09/2019) PAP - EXTERNAL NILM HPV negative Historical Provider MD CYTOLOGY ORDERABLES Final Result from Last 3 Months or Most Recently Relevant to Health Maintenance Insurance [place] [address] [place] [address] PPO [employer]UE [employer] OUT OF STATE PPO [employer] OUT OF STATE [place] [address] [place] [address] [address] [facility] OUT [facility] [place] [address] Advance Directives For more information, please contact: [phone] (9AM - 5PM [facility], Thursday-Thursday) Documents on File Type Date Recorded Patient Termite Control Service Representative Expl anation Healthcare Proxy 09/26/2019 11:19 AM * Full Code (Presumed) (Latest Code Status on File) Date Activated Date Inactivated Comments 09/22/2019 12:37 PM * Full Code (Presumed) Date Activated Date Inactivated Comments 09/22/2019 5:42 AM 09/22/2019 12:37 PM * Full Code (Presumed) Date Activated Date Inactivated Comments 04/24/2019 12:52 PM 04/25/2019 3:27 PM Care Teams Beta Tester Relationship Specialty Start Date End Date Pcp, Unknown PCP - General 06/23/23 Additional Source Comments The information contained in this document represents components of the legal health record. It is not the complete legal health record.[facility]
--- OUTSIDE RECORDS SUMMARY | 2025-01-27 14:59 | XMS_ITS | Encounter Summary ---
Author Organization [facility] Address [address] [place] [phone] Phone Care Team Providers Care Case Investigator Name Role Phone Pcp, Unknown Primary Care Provider Unavailabl e Pcp, Unknown Primary Care Provider Unavailabl e Pcp, Unknown Primary Care Provider Unavailabl e Encounter Details Date Type Department Care Team (Late st Contact Info) Description 09/02/2019 Prep for Surgery [facility] [address] [place] [address] [place] [address] Mary Forte MD [address], [address] [place] [address] [email or web address] Social History Tobacco Use Types Packs/Day Years Used Date Smoking Tobacco: Never Smokeless Tobacco: Never Alcohol Use Standard Drinks/Week Comments Not Currently 0 (1 standard drink = 0.6 oz pur e alcohol) Comments Yes Sex and Gender Information Value Date Recorded Sex Assigned at Female 04/24/2019 5:14 AM EST Legal Sex Female 3:53 PM EST Gender Identity Female 04/24/2019 5:14 AM EST Sexual Orientation Straight 08/16/2019 9: 14 AM EDT 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 at 36w5d who presents for preop appointment for scheduled RCS at>39 weeks. Review of Systems: As in HPI. All other systems reviewed and negative. Past Histories: Past Medical History: Diagnosis Date ??? Urinary tract infection 03/21/2019 Family History Problem Relation Age of Onset ??? Hypertension Mother ??? Migraines Sister ??? No Known Problems Brother ??? Arthritis Maternal Grandmother ??? Thyroid cancer Paternal Grandmother Past Surgical History: Procedure Laterality Date ??? SECTION, LOW TRANSVERSE 2016 Social History Socioeconomic History ??? Marital status: /Civil Union Spouse name: Schuyler ??? Number of children: 1 ??? Years of education: Not on file ??? Highest education level: Not on file Occupational History ??? 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 Financial resource strain: Not on file ??? Food insecurity Worry: Not on file Inability: Not on file ??? Transportation needs Medical: Not on file Non-medical: Not on file Tobacco Use ??? Smoking status: Never Smoker ??? Smokeless tobacco: Never Used Substance and Sexual Activity ??? Alcohol use: Not Currently ??? Drug use: Not Currently ??? Sexual activity: Yes Partners: Male Lifestyle ??? Physical activity Days per week: Not on file Minutes per session: Not on file ??? Stress: Not on file Relationships ??? Social connections Talks on phone: Not on file Gets together: Not on file Attends alevism service: Not on file Active member of club or organization: Not on file Attends meetings of clubs or organizations: Not on file Relationship status: Not on file ??? Intimate partner violence Fear of current or ex partner: Not on file Emotionally abused: Not on file Physically abused: Not on file Forced sexual activity: Not on file Other Topics Concern ??? Not on file Social History Narrative ??? Not on file OB History 2 Para 1 Term 1 0 AB 0 Living 1 SAB 0 TAB 0 Ectopic 0 Multiple 0 Live Births 1 No Known Allergies Outpatient Medications as of 09/02/2019 Medication ??? cephalexin (KEFLEX) 250 MG capsule ??? vitamins-DHA (DUET DHA ) 29 mg iron-1 mg -430 mg Cmpk No current facility-administered medications on file as of 09/02/2019. labs: Blood Type/RH: Lab Results Component Value Date ABO A 03/01/2019 ABORH A pos 03/01/2019 HBsAg: Lab Results Component Value Date HBSAG Neg 03/01/2019 GBS: Lab Results Component Value Date STREPB Pos 03/01/2019 Rubella: Lab Results Component Value Date RUBIGG Immune 03/01/2019 RPR: Lab Results Component Value Date RPR Negative 03/01/2019 Chlamydia: No results found for: CHLAMCLT Gonorrhea: No results found for: NGONCLT Hepatitis C: No results found for: HCVAB, HCVIGG, HCVRNA HSV: No results found for: HSVAB, HSVIGG, HSVCX HIV: Lab Results Component Value Date [id number] Negative 03/01/2019 Objective: Gen: Alert, cooperative. Well-appearing on today's exam Cardiovascular: regular rate and rhythm, no m/r/g Lung: clear to auscultation bilaterally, no wheezing, ronchi, normal respiratory effort Abdomen: Soft, gravid, non-tender. EFW: 6.75, vertex Extremities: no calf tenderness or edema, atraumatic without deformity Assessment/Plan: 39 y.o. at 36w5d underwent preop visit today. Consents signed for transfusion and for surgery and tubal ligation. We discussed tubal ligation adds minimal risk to surgery. I reviewed risk of regret. She feels sure still of having this done. 1. [facility] to [facility] 2. IV placement, CBC, T&S 3. Ancef 2g preop Mary Forte MD documented in this encounter Plan of Treatment Not on [...] documented as of this encounter Care Teams Case Investigator Relationship Specialty Start Date End Date Pcp, Unknown PCP - General 04/24/19 05/28/23 Pcp, Unknown PCP - General 05/29/23 06/22/23 Pcp, Unknown PCP - General 06/23/23 documented as of this encounter Additional Source Comments The information contained in this document represents components of the legal health record. It is not the complete legal health record.[facility]
== END 2025-01-27 14:59 | disposition home or self-care (01) ==
LOC: HO.US 14:58
PROVIDERS: PCP Nurse Practitioner Family; Visit Provider Advanced Practice Midwife
DX: Z01.419 Encounter for gynecological examination (general) (routine) without abnormal findings (principal); N93.9 Abnormal uterine and vaginal bleeding, unspecified
CPT/HCPCS: 76830; 76856

== ENCOUNTER → 2025-01-27 14:59 | Outpatient (BNV) | payer BC, SELFPAY | PROVIDERS: PCP Nurse Practitioner Family; Visit Provider Radiology Diagnostic Radiology | DX: D25.1 Intramural leiomyoma of uterus (principal); N93.9 Abnormal uterine and vaginal bleeding, unspecified | CPT/HCPCS: 76830; 76856 ==

== ENCOUNTER 2025-02-22 07:55 | Outpatient (AMB) | payer BC, SELFPAY ==
--- NOTE | 2025-02-22 07:56 | MHC.OFFVIS ---
Vital Signs 02/22/25 07:58 Height 5 ft 3 in Weight 174 lb BMI 30.8 BP 118/72 Intake Visit Reasons: US follow up Account Financial Manager Required: No Information Interpreted: non-clinical & clinical Process Coordinator: Process Coordinator Present Accompanied by: Child Allergies No Known Allergies Allergy (Verified 02/22/25 08:00) Is last menstrual period known: Yes Last menstrual period: 02/06/25 HPI Comments Details: Patient is here today for a follow up pelvic ultrasound accompanied by her 2 children. She reports heavy menstrual bleeding since her 2nd in 2019. She additionally reports pain with ovulation over the last 2 months. Labs 12/22/24 Hgb-14.5, TSH- 1.86. 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) Cognitive needs: No Hearing needs: No Vision needs: No Female Reproductive History Menstrual Age of Menarche: 15 Date of last menstrual period: 02/06/25 Review of Systems Const All systems reviewed & are unremarkable except as noted in HPI and below Endo Reports no additional complaints Physical Exam Vital Signs: Last Vital Signs BP 118/72 02/22/25 07:58 BMI result Body Mass Index 30.8 Const General: cooperative, healthy appearing and no acute distress Psych Appearance: well kempt Attitude: cooperative Thought process: Normal thought process present Results Reviewed Results Reviewed: [address] [address] Ultrasound Report Signed Patient: Tierney Muñoz MR#: [id number] : 1980 Acct:[id number] Age/Sex: 44 / F ADM Date: 01/27/25 Loc: HO.US Attending Dr: Josi Read CNM Ordering Physician: Josi Read CNM Date of Service: 01/27/25 Procedure(s): US pelvic and transvaginal Accession Number(s): [id number] cc: Josi Read CNM; Merly Abdi RADIO ARTIST-BC~ EXAMINATION: US PELVIS CLINICAL INFORMATION: Z01.419 - Encounter for gynecological examination, abnormal uterine bleeding, history of tubal ligation and COMPARISON: None available. TECHNIQUE: Ultrasound of the pelvis is performed using both transabdominal and transvaginal transducers along with Doppler. Transvaginal imaging is performed due to inadequate visualization transabdominally. FINDINGS: Uterus: The uterus is anteverted and measures 10 x 4 x 5 cm. The double wall endometrial thickness is 9 mm. Focal heterogeneous hypodensity is present in the left fundus of the uterus measuring 17 x 13 x 13 mm consistent with intramural leiomyoma. Adnexa: Both ovaries are visualized. There is normal color flow to the adnexa. There is no ovarian torsion. There is no pelvic ascites or fluid collection. Right ovary measures 3.7 x 2.5 x 1.9 cm. Left ovary measures 2.5 x 1.6 x 1.5 cm. US/US pelvic and transvaginal IMPRESSION: Small intramural leiomyoma is present in the left fundus measuring 17 mm long axis. Electronically signed by: Kevin Bello MD 01/27/2025 03:41 PM EDT Dictated By: Kevin Bello MD Signed By: <Electronically signed by Kevin Bello MD in OV> 01/27/25 1541 DD/ 1510 TD/TT: 01/27/25 1520 Clinical Informatics Spec: Assessment & Plan Assessment & Plan (1) Fibroid: Comment: 1.7 left fundal Code(s): D21.9 - Benign neoplasm of connective and other soft tissue, unspecified Category: Medical Plan: Counseled re: Leiomyoma: common pelvic neoplasm. Differential diagnosis-may include but not limited to- leiomyosarcoma which is a rare uterine sarcoma 3-7/100,000, difficult to distinguish from fibroids on ultrasound from uterine sarcoma's. Unlikely any single test will have a highly positive predictive value. Hysterectomy is not recommended for sole purpose of excluding malignant neoplasm. Consult for surgical exploration, medical treatment, other treatments, verses expectant management, pros and cons, risks and benefits. Expectant management follow up in 6 months, then yearly for stability. Patient prefers to proceed with expectant management. Referral to MD if indicated for level of care if indicated Report any AUB, pelvic pressure, bloating, or pain. (2) Abnormal uterine bleeding (AUB): Code(s): N93.9 - Abnormal uterine and vaginal bleeding, unspecified Category: Medical Plan Monotor menses, report any concerns. EMB appt. 03/07/25. The patient expressed understanding and agreement with the plan of care. All of her questions and concerns were addressed to the best of my ability. This note is constructed using voice recognition software. While every effort has been made to ensure accuracy, customer sales consultant errors may have been included. Orders: Orders US pelvic and transvaginal 5 Months D21.9 - Benign neoplasm of connective and other soft tissue, unspecified Coding Level of Care Code Est Pt Level 3 (47365) Diagnoses Fibroid D21.9 Abnormal uterine bleeding (AUB) N93.9
[2025-02-22 07:58] VITALS: BP 118/72; BMI 30.8
--- OUTSIDE RECORDS SUMMARY | 2025-02-22 07:59 | XMS_ITS | Encounter Summary ---
Author Organization [facility] Address [address] [place] [address] Phone Care Team Providers Care Turret Lathe Operator Name Role Phone Pcp, Unknown Primary Care Provider Unavailabl e Pcp, Unknown Primary Care Provider Unavailabl e Pcp, Unknown Primary Care Provider Unavailabl e Encounter Details Date Type Department Care Team (Late st Contact Info) Description 09/22/2019 Procedure Pass [facility] L&D Procedures [address] [place] [address] Social History Tobacco Use Types Packs/Day Years [...] documented as of this encounter Care Teams Turret Lathe Operator Relationship Specialty Start Date End Date Pcp, Unknown PCP - General 04/24/19 05/28/23 Pcp, Unknown PCP - General 05/29/23 06/22/23 Pcp, Unknown PCP - General 06/23/23 documented as of this encounter Additional Source Comments The information contained in this document represents components of the legal health record. It is not the complete legal health record.[facility]
--- OUTSIDE RECORDS SUMMARY | 2025-02-22 07:59 | XMS_ITS | Encounter Summary ---
Author Organization [facility] Address [address] [place] [address] Phone Care Team Providers Care Cake Wringer Name Role Phone Pcp, Unknown Primary Care Provider Unavailabl e Pcp, Unknown Primary Care Provider Unavailabl e Pcp, Unknown Primary Care Provider Unavailabl e Encounter Details Date Type Department Care Team (Late st Contact Info) Description 09/02/2019 Prep for Surgery [facility] [address] [place] [address] [place] [address] Mary Forte MD [address] [facility], [address] [place] [address] [email or web address] Social History Tobacco Use Types Packs/Day Years [...] file Gets together: Not on file Attends congregation service: Not on file Active member of [...] HSVCX HIV: Lab Results Component Value Date [id number] Negative 03/01/2019 Objective: Gen: Alert, cooperative. Well-appearing [...] documented as of this encounter Care Teams Cake Wringer Relationship Specialty Start Date End Date Pcp, Unknown PCP - General 04/24/19 05/28/23 Pcp, Unknown PCP - General 05/29/23 06/22/23 Pcp, Unknown PCP - General 06/23/23 documented as of this encounter Additional Source Comments The information contained in this document represents components of the legal health record. It is not the complete legal health record.[facility]
--- OUTSIDE RECORDS SUMMARY | 2025-02-22 07:59 | XMS_ITS | Encounter Summary ---
Author Organization [facility] Address [address] [place] [phone] Phone Care Team Providers Care Aircraft Powerplant Repairer Name Role Phone Pcp, Unknown Primary Care Provider Unavailabl e Reason for Referral * Hospital - Outpatient - Closed Specialty Diagnoses / Procedures Referred By Ce t Referred To Contact Diagnoses Palpitations Procedures Event Monitor Looping up to 30 Days MCT (Mobile Cardiac Telemetry) Event Monitor Looping up to 30 Days Chyna Aguilar PA-C Phone: tel: fax: [email or web address] Referral ID Status Reason Start Date Expiration Date Visits Re quested Visits Authorized [id number] Closed 05/29/2023 05/28/2024 1 1 Encounter Details Date Type Department Care Team (Latest Contact Info) Description 07/29/2023 Ancillary Orders [facility] Emergency [address] [place] [address] Chyna Aguilar PA-C [address] [place] [address] [email or web address] Palpitations (Primary Dx) Social History Tobacco [...] Primary documented in this encounter Care Teams Aircraft Powerplant Repairer Relationship Specialty Start Date End Date Pcp, Unknown PCP - General 06/23/23 documented as of this encounter Additional Source Comments The information contained in this document represents components of the legal health record. It is not the complete legal health record.[facility]
--- OUTSIDE RECORDS SUMMARY | 2025-02-22 07:59 | XMS_ITS | Clinical Summary ---
Author Organization [facility] Address [address] [facility] [address] [place] [address] Phone Care Team Providers Care Pitch Flaker Name Role Phone Pcp, Unknown Primary Care [...] -We will try to find out from [facility] which oral antibiotic was trialed 1 month [...] been needing to work at the [employer] but they are being very cautious [...] 2000 PAP SMEAR 02/09/2022 02/09/2019 MAMMOGRAM 2022 INFLUENZA VACCINE (#1) 2024 , 03/28/2020, 04/19/2019 COVID-19 VACCINE (3 - 2024-2 6 season) 2025 10/19/2020, 09/28/2020 SCREENING FOR DIABETES 05/29/2026 05/29/2023 [...] (02/09/2019) PAP - EXTERNAL NILM HPV negative [facility] Provider MD CYTOLOGY ORDERABLES Final Result from Last 3 Months or Most Recently Relevant to Health Maintenance Insurance [employer] [facility] PPO [facility] OUT [facility] PPO OUT OF [facility] [place] [address] [place] [address] OUT [facility] [place] [address] [place] [address] [address] [place] [address] [place] [address] [place] [address] OUT [facility] PPO Advance Directives For more information, please contact: [phone] (9AM - 5PM [facility], Thursday-Thursday) Documents on File Type Date Recorded Patient Ccie Expl anation Healthcare Proxy 09/26/2019 11:19 AM * Full Code (Presumed) (Latest Code Status on File) Date Activated Date Inactivated Comments 09/22/2019 12:37 PM * Full Code (Presumed) Date Activated Date Inactivated Comments 09/22/2019 5:42 AM 09/22/2019 12:37 PM * Full Code (Presumed) Date Activated Date Inactivated Comments 04/24/2019 12:52 PM 04/25/2019 3:27 PM Care Teams Pitch Flaker Relationship Specialty Start Date End Date Pcp, Unknown PCP - General 06/23/23 Additional Source Comments The information contained in this document represents components of the legal health record. It is not the complete legal health record.[facility]
--- OUTSIDE RECORDS SUMMARY | 2025-02-22 07:59 | XMS_ITS | Encounter Summary ---
Author Organization [facility] Address [address] [address] Phone Care Team Providers Care Coffee Bar Attendant Name Role Phone Pcp, Unknown Primary Care Provider Unavailabl e Pcp, Unknown Primary Care Provider Unavailabl e Encounter Details Date Type Department Care Team ([facility] st Contact Info) Description 05/29/2023 Procedure Pass Non-Invasive Cardiology [address] [place] [address] Social History Tobacco Use Types Packs/Day Years [...] Indicated 05/29/2023 11:53 AM Diane Lee * [place] Suicide Severity Rating Scale (Screener/Recent Self-Report) Question [...] on filedocumented in this encounter Care Teams Coffee Bar Attendant Relationship Specialty Start Date End Date Pcp, Unknown PCP - General 05/29/23 06/22/23 Pcp, Unknown PCP - General 06/23/23 documented as of this encounter Additional Source Comments The information contained in this document represents components of the legal health record. It is not the complete legal health record.[facility]
== END 2025-02-22 08:50 | disposition home or self-care (01) ==
LOC: HO.HWS 07:55
PROVIDERS: PCP Nurse Practitioner Family; Visit Provider Advanced Practice Midwife
DX: D21.9 Benign neoplasm of connective and other soft tissue, unspecified (principal); N93.9 Abnormal uterine and vaginal bleeding, unspecified
CPT/HCPCS: 99213

== ENCOUNTER 2025-03-07 10:19 | Outpatient (REF) | payer BC, SELFPAY | END 2025-03-07 10:20 | disposition home or self-care (01) | LOC: HO.LNP 10:19 | PROVIDERS: PCP Nurse Practitioner Family; Visit Provider Advanced Practice Midwife | DX: N93.9 Abnormal uterine and vaginal bleeding, unspecified (principal); Z30.430 Encounter for insertion of intrauterine contraceptive device | CPT/HCPCS: 58100; 58300; 81025; 88305 ==

== ENCOUNTER 2025-03-07 10:19 | Outpatient (AMB) | payer BC, SELFPAY ==
[2025-03-07 10:26] VITALS: BP 128/82
--- NOTE | 2025-03-07 10:26 | A.OFFVIS_ITS ---
Vital Signs 03/07/25 10:26 Height 5 ft 3 in BP 128/82 Blood Pressure Location Lt brachial Position Sitting Intake Visit Reasons: EMB Lacing Cutter Required: No Allergies No Known Allergies Allergy (Verified 03/07/25 10:27) Medication List - Last Reconciled 03/07/25 by Lennie Stratton LPN buspirone 10 mg PO DAILY diclofenac sodium 1% (Arthritis Pain (diclofenac)) 4 grams topical QID propranolol ER 60 mg PO BEDTIME Is last menstrual period known: Yes Last menstrual period: 02/05/25 Post menopausal: No Patient : No Do you need a note to return to daycare/school/sports/work: No HPI Comments Details: Patient is here today for an endometrial biopsy procedure due to history of abnormal uterine bleeding. History of left fundal 1.7 cm uterine fibroid. History of ASCUS on Pap. UPT is negative. [facility] Medical History ASCUS of cervix with negative high risk HPV IUD (intrauterine device) in place Fibroid Plantar fasciitis of left foot Abnormal uterine bleeding (AUB) Surgical History History of bilateral ligation of fallopian tubes History of 2 sections Family History Mother High blood pressure Maternal Grandmother Osteoarthritis Paternal Grandmother Cancer Social History Housing: House Alcohol intake: current Alcohol intake frequency: a few times a month Alcohol type: wine Patient Tobacco Use Status: Never used Tobacco e-Cigarette/Vaping Use: Never Used Second Hand Smoke Exposure: No service: No 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) Cognitive needs: No Hearing needs: No Vision needs: No Female Reproductive History Menstrual Age of Menarche: 15 Duration of menses: 6-7 days Date of last menstrual period: 02/05/25 control method: permanent sterilization Review of Systems Const All systems reviewed & are unremarkable except as noted in HPI and below Physical Exam Vital Signs: Last Vital Signs BP 128/82 03/07/25 10:26 Const General: cooperative, healthy appearing and no acute distress Orientation/consciousness: patient oriented x3 GI Inspection: Yes normal to inspection Palpation (GI): Soft to palpation and Other GI palpation findings present (Nontender) Rectal Exam - Female: visual inspection normal General: Yes bladder normal to palpation External Female Exam: normal appearance of the urethra Speculum Exam - Vagina: normal appearance of the vagina, normal palpation and normal vaginal discharge Speculum Exam - Cervix: normal appearance of the cervix and normal palpation Bimanual exam- vagina & uterus: normal bimanual exam, normal palpation, uterine size normal, bladder normal to palpation, normal palpation, uterine shape normal and non-tender Bimanual Exam- Adnexa, other: normal adnexae Neuro General: patient oriented x3 Office Procedures Endometrial Biopsy Details: The patient is here today for an endometrial biopsy due to AUB to rule out any pathology including atypical, hyperplasia or cancer cells of the uterus. She was counseled regarding anticipatory guidance for the procedure including the risks for pain, infection, bleeding, perforation, potential injury to the tissues may include the cervix, uterus, tubes, bladder and bowels. These injuries may include further treatment and evaluation including surgery, blood transfusions, antibiotics, hospitalizations and anesthesia. Permanent injury and scarring can occur. She was consented for the procedure, and the consent forms were signed. She is agreeable to have the procedure today. All questions were answered. Endometrial Biopsy Procedure: The patient was placed in the dorsal lithotomy position and a sterile speculum inserted. Using aseptic technique for the procedure. The cervix was cleansed with Betadine x 3 swabs. A single toothed tenaculum was placed on the cervix for stabilization and the uterus was sounded to 8 cm with a 4mm pipelle, and tissue sample obtained. Minimal bleeding was observed. The tissue sample was placed in formalin in a patient labeled container by staff assisting and sent to the pathology department for processing and interpretation. The patient tolerate the procedure well and was in good condition when leaving the department. Endometrial Biopsy Post Procedure Care: Nothing in the vagina including: tampons, douching or intimacy until all the bleeding has subsided. There may be some post procedure bleeding for several days, this bleeding is usually light and may turn to a light brown or pink color. Mild cramps may occurs. Nothing in the vaginal including: tampons, douching, or intimacy until all the bleeding has subsided. You may take an over the counter mild analgesic such as Tylenol or Advil (if no allergies) per the manufactures recommendation on dosing, frequency, and follow the directions completely. Call the office if any: fever (over 100.4), flu like symptoms, abdominal pain (worse than cramping), foul smelling, infected appearing vaginal discharge, or heavy bleeding. If indicated: Use condoms to prevent and STI's, and only after the bleeding has stopped completely. Return to the office in 2 weeks for results and plan of care. This note is constructed using voice recognition software. While every effort has been made to ensure accuracy, pest controller assistant errors may have been included. 92945-Kcaljcjpabm Biopsy IUD Insert/Removal Details Details: The patient is here today for a Mirena IUD insertion. She was counseled on the side effects including: menstrual cycle changes, pain, infection, bleeding, or expulsion. Risks of injury to the vagina, cervix, uterus, tubes, ovaries, bowel, bladder, and any adjacent tissue, resulting in nerve damage, scarring, and pain. Risks complications for the procedure that may require other test including ultrasounds, Xray, CT or MRI scan, surgery, anesthesia, blood transfusion. A urine test was completed and was negative. She was consented for the IUD insertion and has signed the consent form. All questions were answered. IUD Insertion: The patient was placed in the dorsal lithotomy position and a sterile speculum was inserted. The procedure was completed under aseptic technique. The cervix and vagina were cleansed with a Betadine solution x 3 swabs. A single toothed tenaculum was applied to the cervix for stabilization, and the uterus was sounded to 8 cm. The device was inserted and released with a gentle motion. Bleeding from the tenaculum sites and the procedure were minimal. The strings were trimmed to 3cm. All of the equipment was removed and the bimanual was normal, no tip was palpable at the cervical os. The patient tolerated the procedure well and left the office in good condition. Post IUD Insertion Care: There may be some post insertion bleeding for several days that is usually light and can turn to a light brown or pink in color. Mild cramping may occur. Nothing in the vagina including: tampons, douching or intimacy for several days. You may take an over the counter mild analgesia like Tylenol or Advil (if no allergies), per the manufacturers recommendations on dosing and frequency. Follow the directions completely. Call the office if any: fever (over 100.4), flu like symptoms, abdominal pain, worsening cramping not resolved with over the counter medications, foul smelling vaginal odor, signs of infected appearing discharge, or heavy bleeding. Use a condom for a back up method if indicated for 7 days. Always use a condom for STI prevention; IUD's are not protective against STD's. Return to the office in 4-6 weeks for IUD recheck. This note is constructed using voice recognition software. While every effort has been made to ensure accuracy, pest controller assistant errors may have been included. 27073-BLT Insertion Procedure code (CPT) selection complete Results AMB Test Urine AMB Test Urine Negative Last Edit by Lennie Stratton LPN on 12/23 10:33 Results Reviewed Results Reviewed: Laboratory Last Values [facility] Clinic Negative 03/07/25 10:33 Assessment & Plan Assessment & Plan (1) Abnormal uterine bleeding (AUB): Code(s): N93.9 - Abnormal uterine and vaginal bleeding, unspecified Category: Medical Plan: Counseled regarding abnormal uterine bleeding an options for treatment. She decided today to have the Mirena inserted, see procedure notes. (2) Encounter for IUD insertion: Code(s): Z30.430 - Encounter for insertion of intrauterine contraceptive device Plan Mirena IUD inserted following the endometrial biopsy today see procedure notes. Follow up in 2 weeks for test results and IUD check. The patient expressed understanding and agreement with the plan of care. All of her questions and concerns were addressed to the best of my ability. This note is constructed using voice recognition software. While every effort has been made to ensure accuracy, pest controller assistant errors may have been included. Coding Level of Care Code Procedure Only Diagnoses Abnormal uterine bleeding (AUB) N93.9 Encounter for IUD insertion Z30.430 CPT Codes Endometrial Biopsy - CPT: 49888-Xygktnomhjw Biopsy ([id number]) Details - CPT: 99798-PHP Insertion ([id number])
--- OUTSIDE RECORDS SUMMARY | 2025-03-07 12:21 | XMS_ITS | Encounter Summary ---
Author Organization [facility] Address [address] [place] [address] Phone Care Team Providers Care Break Up Worker Name Role Phone Pcp, Unknown Primary Care Provider Unavailabl e Pcp, Unknown Primary Care Provider Unavailabl e Pcp, Unknown Primary Care Provider Unavailabl e Encounter Details Date Type Department Care Team (Late st Contact Info) Description 09/22/2019 Procedure Pass [facility] L&D Procedures [address] [place] [address] Social History Tobacco Use Types Packs/Day Years [...] documented as of this encounter Care Teams Break Up Worker Relationship Specialty Start Date End Date Pcp, Unknown PCP - General 04/24/19 05/28/23 Pcp, Unknown PCP - General 05/29/23 06/22/23 Pcp, Unknown PCP - General 06/23/23 documented as of this encounter Additional Source Comments The information contained in this document represents components of the legal health record. It is not the complete legal health record.[facility]
--- OUTSIDE RECORDS SUMMARY | 2025-03-07 12:21 | XMS_ITS | Clinical Summary ---
Author Organization [facility] Address [address] [facility] [address] [place] [address] Phone Care Team Providers Care House Mother Name Role Phone Pcp, Unknown Primary Care [...] -We will try to find out from [facility] which oral antibiotic was trialed 1 [...] Assessment & Plan (08/30/2019 10:12 AM EDT): hEsan is doing well. Denies VB/LOF/Ctxs. + FM. We discussed COVID-19 precautions, office and hospital preparation and new visitor policy. Michelle is prepared and has been staying at home with her 4 year old. Her partner has been needing to work at the [email or web address] warehouse but they are being very cautious [...] (02/09/2019) PAP - EXTERNAL NILM HPV negative [facility] Provider MD CYTOLOGY ORDERABLES Final Result from Last 3 Months or Most Recently Relevant to Health Maintenance Insurance [employer] [facility] PPO [facility] OUT [facility] PPO OUT OF [facility] [place] [address] [place] [address] [facility] [place] [address] [place] [address] [address] [place] [address] [place] [address] OUT [facility] PPO Advance Directives For more information, please contact: [phone] (9AM - 5PM [facility], Thursday-Thursday) Documents on File Type Date Recorded Patient Help Desk Associate Expl anation Healthcare Proxy 09/26/2019 11:19 AM * Full Code (Presumed) (Latest Code Status on File) Date Activated Date Inactivated Comments 09/22/2019 12:37 PM * Full Code (Presumed) Date Activated Date Inactivated Comments 09/22/2019 5:42 AM 09/22/2019 12:37 PM * Full Code (Presumed) Date Activated Date Inactivated Comments 04/24/2019 12:52 PM 04/25/2019 3:27 PM Care Teams House Mother Relationship Specialty Start Date End Date Pcp, Unknown PCP - General 06/23/23 Additional Source Comments The information contained in this document represents components of the legal health record. It is not the complete legal health record.[facility]
--- OUTSIDE RECORDS SUMMARY | 2025-03-07 12:21 | XMS_ITS | Encounter Summary ---
Author Organization [facility] Address [address] [address] Phone Care Team Providers Care Flavoring Oil Filterer Name Role Phone Pcp, Unknown Primary Care Provider Unavailabl e Pcp, Unknown Primary Care Provider Unavailabl e Encounter Details Date Type Department Care Team ([facility] st Contact Info) Description 05/29/2023 Procedure Pass Non-Invasive Cardiology [address] [place] [address] Social History Tobacco Use Types Packs/Day Years [...] Indicated 05/29/2023 11:53 AM Diane Lee * [place] Suicide Severity Rating Scale (Screener/Recent Self-Report) Question [...] on filedocumented in this encounter Care Teams Flavoring Oil Filterer Relationship Specialty Start Date End Date Pcp, Unknown PCP - General 05/29/23 06/22/23 Pcp, Unknown PCP - General 06/23/23 documented as of this encounter Additional Source Comments The information contained in this document represents components of the legal health record. It is not the complete legal health record.[facility]
--- OUTSIDE RECORDS SUMMARY | 2025-03-07 12:21 | XMS_ITS | Encounter Summary ---
Author Organization [facility] Address [address] [place] [address] Phone Care Team Providers Care Grommet Worker Name Role Phone Pcp, Unknown Primary Care Provider Unavailabl e Reason for Referral * Hospital - Outpatient - Closed Specialty Diagnoses / Procedures Referred By Ce t Referred To Contact Diagnoses Palpitations Procedures Event Monitor Looping up to 30 Days MCT (Mobile Cardiac Telemetry) Event Monitor Looping up to 30 Days Chyna Aguilar PA-C Phone: tel: fax: [email or web address] Referral ID Status Reason Start Date Expiration Date Visits Re quested Visits Authorized [id number] Closed 05/29/2023 05/28/2024 1 1 Encounter Details Date Type Department Care Team (Latest Contact Info) Description 07/29/2023 Ancillary Orders [facility] Emergency [address] [place] [address] Chyna Aguilar PA-C [address] [place] [address] [email or web address] Palpitations (Primary Dx) [...] Primary documented in this encounter Care Teams Grommet Worker Relationship Specialty Start Date End Date Pcp, Unknown PCP - General 06/23/23 documented as of this encounter Additional Source Comments The information contained in this document represents components of the legal health record. It is not the complete legal health record.[facility]
--- OUTSIDE RECORDS SUMMARY | 2025-03-07 12:21 | XMS_ITS | Encounter Summary ---
Author Organization [facility] Address [address] [facility] [address] [place] [address] Phone Care Team Providers Care Picture Booker Name Role Phone Pcp, Unknown Primary Care Provider Unavailabl e Pcp, Unknown Primary Care Provider Unavailabl e Pcp, Unknown Primary Care Provider Unavailabl e Encounter Details Date Type Department Care Team (Late st Contact Info) Description 09/02/2019 Prep for Surgery [facility] [address] [place] [address] [place] [address] Mary Forte MD [address] [facility], [address] [place] [address] [email or web address] Social History Tobacco Use Types Packs/Day Years [...] file Gets together: Not on file Attends lutheran service: Not on file Active member of [...] HSVCX HIV: Lab Results Component Value Date [id number] Negative 03/01/2019 Objective: Gen: Alert, cooperative. Well-appearing [...] documented as of this encounter Care Teams Picture Booker Relationship Specialty Start Date End Date Pcp, Unknown PCP - General 04/24/19 05/28/23 Pcp, Unknown PCP - General 05/29/23 06/22/23 Pcp, Unknown PCP - General 06/23/23 documented as of this encounter Additional Source Comments The information contained in this document represents components of the legal health record. It is not the complete legal health record.[facility]
== END 2025-03-07 11:16 | disposition home or self-care (01) ==
LOC: HO.HWS 10:19
PROVIDERS: PCP Nurse Practitioner Family; Visit Provider Advanced Practice Midwife
DX: N93.9 Abnormal uterine and vaginal bleeding, unspecified (principal); Z30.430 Encounter for insertion of intrauterine contraceptive device; Z32.02 Encounter for pregnancy test, result negative
CPT/HCPCS: 58100; 58300

== ENCOUNTER 2025-03-21 10:41 | Outpatient (AMB) | payer BC, SELFPAY ==
--- NOTE | 2025-03-21 10:43 | MHC.OFFVIS ---
Vital Signs 03/21/25 10:47 Height 5 ft 3 in Weight 174 lb BMI 30.8 BP 132/90 H Intake Visit Reasons: iud check/emb results Shift Stacker: Shift Stacker Present (Katiuska) Allergies No Known Allergies Allergy (Verified 03/21/25 10:43) PFSH Medical History ASCUS of cervix with negative high risk HPV IUD (intrauterine device) in place Fibroid Plantar fasciitis of left foot Abnormal uterine bleeding (AUB) Surgical History History of bilateral ligation of fallopian tubes History of 2 sections Family History Mother High blood pressure Maternal Grandmother Osteoarthritis Paternal Grandmother Cancer Social History Housing: House Alcohol intake: current Alcohol intake frequency: a few times a month Alcohol type: wine Patient Tobacco Use Status: Never used Tobacco e-Cigarette/Vaping Use: Never Used Second Hand Smoke Exposure: No service: No Current occupational status: unemployed and other Cognitive needs: No Hearing needs: No Vision needs: No Female Reproductive History Menstrual Age of Menarche: 15 control method: progestin IUCD (Mirena 03/07/27) Review of Systems Const All systems reviewed & are unremarkable except as noted in HPI and below Physical Exam Vital Signs: Last Vital Signs BP 132/90 H 03/21/25 10:47 BMI result Body Mass Index 30.8 Const General: cooperative, healthy appearing and no acute distress Orientation/consciousness: patient oriented x3 GI Inspection: Yes normal to inspection Palpation (GI): Soft to palpation and Other GI palpation findings present (Nontender) Rectal Exam - Female: visual inspection normal General: Yes bladder normal to palpation External Female Exam: normal appearance of the urethra Speculum Exam - Vagina: normal appearance of the vagina, normal palpation, normal vaginal discharge and vaginal bleeding (Small amount) Speculum Exam - Cervix: normal appearance of the cervix, normal palpation and Other cervical findings present (IUD string seen at the os, no tip palpated) Bimanual exam- vagina & uterus: normal bimanual exam, normal palpation, uterine size normal, bladder normal to palpation, normal palpation, uterine shape normal and non-tender Bimanual Exam- Adnexa, other: normal adnexae OB/external & speculum: vaginal bleeding (Small amount) Neuro General: patient oriented x3 Results Reviewed Results Reviewed: Surgical Pathology [id number] Name: Tierney Muñoz Age/Sex: 44/F Attending: Josi Read CNM : 1980 Submitted by: Josi Read CNM Copies to: eMrly [facility] MR #: [id number] Status: DEP REF Collected: 03/07/25 Location: [facility] Received: 03/07/25 Diagnosis Endometrium, biopsy: Benign late secretory endometrium and scant benign endocervical glandular and squamous epithelium; no atypia or carcinoma. Clinical History AUB Microscopic Description Microscopic sections reviewed. Material Received Endometrial biopsy Gross Description Received in formalin labeled ?endometrial biopsy? are fragments of red-pink and pink young soft tissue mixed with mucus and clotted blood forming an aggregate measuring 3.5 x 3.0 x 0.4 cm in greatest dimension which is wrapped in lens paper and entirely submitted for microscopic examination, multiple pieces in cassettes A1 and A2. ([facility]) Copies To Josi Read CNM [facility] [address] [place], [place] [id number] Merly Abdi [facility] Family Medicine [address] [place] [address] [id number] [email or web address] NOTE: Unless otherwise stated, all tissue is formalin-fixed and paraffin-embedded. Some or all of the immunohistochemical tests reported herein may have been developed and their performance characteristics determined by [facility]. They have not been cleared or approved by the U.S. Food and Drug Administration (FDA). However, the FDA has determined that such clearance or approval is not necessary. This laboratory is certified under the Clinical Laboratory Improvement Amendments of 1988 (CLIA) as qualified to perform high complexity clinical laboratory testing. Patient: Tierney Muñoz Age/Sex: 44/F MR#: [id number] Page 1 of 2 Surgical Pathology [id number] Electronically Signed By: Cande Guillermo 03/08/25 1400 Patient: Tierney Muñoz Age/Sex: 44/F MR#: [id number] Page 2 of 2 Assessment & Plan Assessment & Plan (1) Abnormal uterine bleeding (AUB): Code(s): N93.9 - Abnormal uterine and vaginal bleeding, unspecified Category: Medical Plan: Discussed: Endometrial biopsy findings- Diagnosis Endometrium, biopsy: Benign late secretory endometrium and scant benign endocervical glandular and squamous epithelium; no atypia or carcinoma. Reviewed normal anticipatory bleeding patterns post IUD insertion. (2) IUD check up: Code(s): Z30.431 - Encounter for routine checking of intrauterine contraceptive device Plan Monitor menstrual cycles, report any unscheduled bleeding, bleeding episodes <24 days apart or heavy/prolonged menstrual bleeding. Call the office for a follow up for any concerns. A follow up mammogram for routine screening, report any breast lumps for immediate evaluation. Schedule annual exam for November of 2025. The patient expressed understanding and agreement with the plan of care. All of her questions and concerns were addressed to the best of my ability. This note is constructed using voice recognition software. While every effort has been made to ensure accuracy, topper packer errors may have been included. Coding Level of Care Code Est Pt Level 3 (73052) Diagnoses Abnormal uterine bleeding (AUB) N93.9 IUD check up Z30.057
[2025-03-21 10:47] VITALS: BP 132/90; BMI 30.8
--- OUTSIDE RECORDS SUMMARY | 2025-03-21 12:53 | XMS_ITS | Encounter Summary ---
Author Organization [facility] Address [address] [place] [address] Phone Care Team Providers Care Music Assistant Name Role Phone Pcp, Unknown Primary Care Provider Unavailabl e Pcp, Unknown Primary Care Provider Unavailabl e Pcp, Unknown Primary Care Provider Unavailabl e Encounter Details Date Type Department Care Team (Late st Contact Info) Description 09/22/2019 Procedure Pass [facility] L&D Procedures [address] [place] [address] Social History Tobacco Use Types Packs/Day Years [...] documented as of this encounter Care Teams Music Assistant Relationship Specialty Start Date End Date Pcp, Unknown PCP - General 04/24/19 05/28/23 Pcp, Unknown PCP - General 05/29/23 06/22/23 Pcp, Unknown PCP - General 06/23/23 documented as of this encounter Additional Source Comments The information contained in this document represents components of the legal health record. It is not the complete legal health record.[facility]
--- OUTSIDE RECORDS SUMMARY | 2025-03-21 12:53 | XMS_ITS | Encounter Summary ---
Author Organization [facility] Address [address] [facility] [address] [place] [address] Phone Care Team Providers Care Torch Shearer Name Role Phone Pcp, Unknown Primary Care Provider Unavailabl e Pcp, Unknown Primary Care Provider Unavailabl e Pcp, Unknown Primary Care Provider Unavailabl e Encounter Details Date Type Department Care Team (Late st Contact Info) Description 09/02/2019 Prep for Surgery [facility] [address] [place] [address] [place] [address] Mary Forte MD [address] [facility], [address] [place] [address] [email or web address] Social History Tobacco Use Types Packs/Day Years [...] ??? Marital status: /Civil Union Spouse name: Scuhyler ??? Number of children: 1 ??? Years [...] file Gets together: Not on file Attends uatsdin service: Not on file Active member of [...] HSVCX HIV: Lab Results Component Value Date [id number] Negative 03/01/2019 Objective: Gen: Alert, cooperative. Well-appearing [...] documented as of this encounter Care Teams Torch Shearer Relationship Specialty Start Date End Date Pcp, Unknown PCP - General 04/24/19 05/28/23 Pcp, Unknown PCP - General 05/29/23 06/22/23 Pcp, Unknown PCP - General 06/23/23 documented as of this encounter Additional Source Comments The information contained in this document represents components of the legal health record. It is not the complete legal health record.[facility]
--- OUTSIDE RECORDS SUMMARY | 2025-03-21 12:53 | XMS_ITS | Clinical Summary ---
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 [...] (02/09/2019) PAP - EXTERNAL NILM HPV negative [facility] Provider MD CYTOLOGY ORDERABLES Final Result from Last 3 Months or Most Recently Relevant to Health Maintenance Insurance [employer] [facility] PPO [facility] OUT OF [facility] [address] [place] [address] OUT [facility] [place] [place] [address] [place] [address] [place] [address] OUT [facility] PPO Advance Directives For more information, please contact: [phone] (9AM - 5PM [facility], Thursday-Thursday) Documents on File Type Date Recorded Patient Felt Puller Expl anation Healthcare Proxy 09/26/2019 11:19 AM * Full Code (Presumed) (Latest Code Status on File) Date Activated Date Inactivated Comments 09/22/2019 12:37 PM * Full Code (Presumed) Date Activated Date Inactivated Comments 09/22/2019 5:42 AM 09/22/2019 12:37 PM * Full Code (Presumed) Date Activated Date Inactivated Comments 04/24/2019 12:52 PM 04/25/2019 3:27 PM Care Teams Senior Java Programmer Relationship Specialty Start Date End Date Pcp, Unknown PCP - General 06/23/23 Additional Source Comments The information contained in this document represents components of the legal health record. It is not the complete legal health record.[facility]
--- OUTSIDE RECORDS SUMMARY | 2025-03-21 12:53 | XMS_ITS | Encounter Summary ---
Author Organization [facility] Address [address] [address] Phone Care Team Providers Care Biofuels Plant Superintendent Name Role Phone Pcp, Unknown Primary Care Provider Unavailabl e Pcp, Unknown Primary Care Provider Unavailabl e Encounter Details Date Type Department Care Team ([facility] st Contact Info) Description 05/29/2023 Procedure Pass Non-Invasive Cardiology [address] [place] [address] Social History Tobacco Use Types Packs/Day Years [...] Indicated 05/29/2023 11:53 AM Diane Lee * [place] Suicide Severity Rating Scale (Screener/Recent Self-Report) Question [...] on filedocumented in this encounter Care Teams Biofuels Plant Superintendent Relationship Specialty Start Date End Date Pcp, Unknown PCP - General 05/29/23 06/22/23 Pcp, Unknown PCP - General 06/23/23 documented as of this encounter Additional Source Comments The information contained in this document represents components of the legal health record. It is not the complete legal health record.[facility]
--- OUTSIDE RECORDS SUMMARY | 2025-03-21 12:53 | XMS_ITS | Encounter Summary ---
Author Organization [facility] Address [address] [place] [address] Phone Care Team Providers Care Head Rigger Name Role Phone Pcp, Unknown Primary Care [...] Expiration Date Visits Re quested Visits Authorized [id number] Closed 05/29/2023 05/28/2024 1 1 Encounter Details Date Type Department Care Team (Latest Contact Info) Description 07/29/2023 Ancillary Orders [facility] Emergency [address] [place] [address] Chyna Aguilar PA-C [address] [place] [address] [email or web address] Palpitations (Primary Dx) Social History Tobacco [...] Primary documented in this encounter Care Teams Head Rigger Relationship Specialty Start Date End Date Pcp, Unknown PCP - General 06/23/23 documented as of this encounter Additional Source Comments The information contained in this document represents components of the legal health record. It is not the complete legal health record.[facility]
== END 2025-03-21 11:10 | disposition home or self-care (01) ==
LOC: HO.HWS 10:42
PROVIDERS: PCP Nurse Practitioner Family; Visit Provider Advanced Practice Midwife
DX: N93.9 Abnormal uterine and vaginal bleeding, unspecified (principal); Z30.431 Encounter for routine checking of intrauterine contraceptive device
CPT/HCPCS: 99213